=== PATIENT | female | born 1955 | race Caucasian/White ===

== ENCOUNTER → 2017-08-12 08:48 | Outpatient (CLI) | payer OTHER, SELFPAY ==
--- NOTE | 2017-08-12 14:30 | PFTCOMP ---
COMPLETE PULMONARY FUNCTION TEST INTERPRETATION Brief HPI: Patient is a 62 year old female, currently under the care of myself, who presents to [facility] for complete pulmonary function tests secondary to diagnosis of abnormal PFT. Respiratory therapist reports good effort and reproducible results. Interpretation: Forced expiration spirometry shows no large airways obstructive ventilatory defect with an FEV1 of 94 % predicted. There is no significant bronchodilator response by ATS criteria. Spirograms are of good quality and plateau normally. The respiratory flow volume loop shows a normal pattern. Lung volumes by body plethysmography show a normal total lung capacity at 4.45 L, 95% predicted. All other lung volumes are within normal limits. Diffusion capacity by carbon monoxide is decreased at 61 % predicted. The airway resistance is elevated. Compared to previous pulmonary function tests from 12/23/2016, there has been a significant change in all spirometric values and restriction. Impression: Delayed reduction diffusing capacity consistent with a pulmonary vascular disorder. Significant improvement overall compared to previous testing.
--- NOTE | 2017-08-12 14:33 | PFTCOMP_ITS ---
COMPLETE PULMONARY FUNCTION TEST INTERPRETATION Brief HPI: Patient is a 62 year old female, currently under the care of myself, who presents to [facility] for complete pulmonary function tests secondary to diagnosis of abnormal PFT. Respiratory therapist reports good effort and reproducible results. Interpretation: Forced expiration spirometry shows no large airways obstructive ventilatory defect with an FEV1 of 94 % predicted. There is no significant bronchodilator response by ATS criteria. Spirograms are of good quality and plateau normally. The respiratory flow volume loop shows a normal pattern. Lung volumes by body plethysmography show a normal total lung capacity at 4.45 L , 95% predicted. All other lung volumes are within normal limits. Diffusion capacity by carbon monoxide is decreased at 61 % predicted. The airway resistance is elevated. Compared to previous pulmonary function tests from 12/23/2016, there has been a significant change in all spirometric values and restriction. Impression: Delayed reduction diffusing capacity consistent with a pulmonary vascular disorder. Significant improvement overall compared to previous testing.
== END ==
PROVIDERS: Family Provider Family Medicine; PCP Family Medicine; Visit Provider Internal Medicine Critical Care Medicine
DX: R94.2 Abnormal results of pulmonary function studies (principal); R05 Cough
CPT/HCPCS: 94060; 94726; 94729

== ENCOUNTER → 2017-10-23 10:31 | Outpatient (CLI) | payer OTHER, SELFPAY ==
--- NOTE | 2017-10-23 16:14 | LEAS ---
Arterial Study - Arterial Study Arterial Study: Bilateral lower extremity noninvasive arterial exam at rest Right lower extremity The right PT and DP ankle-brachial index at rest of 1.11 and 1.01 respectively. Doppler waveforms are triphasic at the right posterior tibial and dorsalis pedis level. Left lower extremity The left PT and DP ankle-brachial index at rest 1.03 and 1.03 respectively. The left posterior tibial and dorsalis pedis Doppler waveforms are triphasic. Impression Normal bilateral lower extremity ankle-brachial indices and Doppler waveforms at rest. Rodney Cronin M.D., F.A.C.S.
== END ==
PROVIDERS: Family Provider Family Medicine; PCP Family Medicine; Visit Provider Nurse Practitioner Family
DX: I73.9 Peripheral vascular disease, unspecified (principal)
CPT/HCPCS: 93922

== ENCOUNTER → 2018-05-29 12:44 | Outpatient (CLI) | payer OTHER, SELFPAY ==
[2018-05-21 15:51] VITALS: BMI 33.8
--- NOTE | 2018-05-29 12:45 | ECHOD_ITS ---
Reason For Study: A. fib/flutter Procedure This was a 2D Doppler, Color Flow transthoracic echocardiogram. Exam performed in department. Left Ventricle Normal LV size. Left ventricular systolic function is normal. The estimated ejection fraction is 60 %. Stage 1 diastolic dysfunction. No regional wall motion abnormalities noted. Right Ventricle Normal RV size. Normal systolic function. Atria Normal left atrium. Normal right atrium. Mitral Valve Bileaflet diffuse mitral valve thickening. Mild (1+) eccentric mitral valve insufficiency. Tricuspid Valve Normal tricuspid valve. Mild tricuspid valve insufficiency. Pulmonary artery systolic pressure is 29 mmHg. Aortic Valve Normal aortic valve. Trisinus/trileaflet aortic valve. Pulmonic Valve Normal pulmonic valve. Great Vessels Normal aortic root. The pulmonary artery is normal size. Normal inferior vena cava. Pericardium/Pleural No pericardial effusion. MMode/2D Measurements & Calculations LVIDd: 4.6 cm IVSd: 0.97 cm Ao root diam: 2.9 cm LVIDs: 2.9 cm LVPWd: 0.92 cm RVDd: 3.2 cm FS: 36.3 % LAV(MOD-bp): 56.0 ml EDV(MOD-sp4): 70.8 ml EDV(MOD-sp2): 78.2 ml LAV(MOD-bp) Indexed: 29.6 ml/m2 ESV(MOD-sp4): 34.6 ml EF(MOD-sp2): 52.1 % LAV(MOD-sp2): 62.1 ml EF(MOD-sp4): 51.1 % LAV(MOD-sp4): 48.0 ml SV(MOD-sp4): 36.2 ml SV(MOD-sp2): 40.8 ml LA A4 area: 18.6 cm2 LA dimension(2D): 3.7 cm RA A4 area: 14.0 cm2 Doppler Measurements & Calculations MV E max kolby: 80.1 cm/sec Lat Peak E' Kolby: 9.4 cm/sec Med Peak E' Kobly: 6.4 cm/sec MV A max kolby: 85.0 cm/sec E/E' lat: 8.5 E/E' med: 12.5 MV E/A: 0.94 Ao V2 max: 185.2 cm/sec LV V1 max: 106.4 cm/sec PA V2 max: 69.3 cm/sec Ao max P.7 mmHg LV V1 max P.5 mmHg TR max kolby: 256.5 cm/sec TR max P.3 mmHg Interpretation Summary Normal LV size. Left ventricular systolic function is normal. The estimated ejection fraction is 60 %. Stage 1 diastolic dysfunction. Pulmonary artery systolic pressure is 29 mmHg. The global longitudinal strain is normal. The global longitudinal strain = -17.7 % (normal). Ordering Physician: Anish Contreras Referring Physician: Unruly Orozco MD Performed By: Neela Aguilar RDCS
--- NOTE | 2018-05-29 12:45 | CDU_ITS ---
Reason For Study: Vertigo Rt. Velocities/BP Lt. Velocities/BP Prox CCA 71.5/21.7 cm/sec. Prox CCA 72.1/25.2 cm/sec. Mid CCA 63.3/18.2 cm/sec. Mid CCA 71.5/21.7 cm/sec. Dist CCA 51.0/17.0 cm/sec. Dist CCA 56.3/22.3 cm/sec. Prox ICA 71.4/24.1 cm/sec. Prox ICA 68.6/24.0 cm/sec. Mid ICA 69.2/24.6 cm/sec. Mid ICA 76.8/24.0 cm/sec. Dist ICA 61.6/17.6 cm/sec. Dist ICA 68.6/25.8 cm/sec. Rt. ICA/CCA = 1.1. Lt. ICA/CCA = 1.1. Prox ECA 78.0/14.7 cm/sec. Prox ECA 77.4/18.8 cm/sec. Rt. Vert. 55.1/14.7 cm/sec. Lt. Vert. 47.5/16.4 cm/sec. Right Extracranial There is intimal thickening but no significant atherosclerotic plaque noted in the right common carotid artery. There is heterogeneous, irregular atherosclerotic plaque noted in the right internal carotid artery. There is no significant atherosclerotic plaque noted in the right external carotid artery. Antegrade flow is noted in the right vertebral artery. Left Extracranial There is intimal thickening but no significant atherosclerotic plaque noted in the left common carotid artery. There is heterogeneous, irregular atherosclerotic plaque noted in the left internal carotid artery. There is no significant atherosclerotic plaque noted in the left external carotid artery. Antegrade flow is noted in the left vertebral artery. Procedure Carotid Duplex [id number]. Exam performed in department. Interpretation Summary Irregular calcific plague at the proximal right internal carotid with <50% stenosis. Irregular calcific plague with shadowing at the proximal left internal carotid with <50% stenosis. Normal flow bilateral external carotids. Patent and antegrade vertebrals bilaterally Velocity criteria have not changed from her previous examination of 03/12/2010. Ordering Physician: Anish Contreras Referring Physician: Unruly Orozco MD Performed By: Tory Arteaga RVT
--- OUTSIDE RECORDS SUMMARY | 2018-08-03 02:36 | XMS RPT_ITS ---
:1955 Author Organization [facility] Support Name Relationship Address Phone LAUREN ANDERSON Unavailable [address] + [place] [address] ROBIND Unavailable [address] [place] [address] MONICA, LAUREN Unavailable [address] + [place] [address] ROBIND Unavailable [address] [place] [address] MONICA, LAUREN Unavailable [address] + [place] [address] ROBIND Unavailable [address] [place] [address] MONICA, LAUREN Unavailable [address] + [place] [address] ROBIND Unavailable [address] [place] [address] MONICA LAUREN Unavailable Unavailable + NOT GIVEN Unavailable Unavailable Unavailable MONICA LAUREN Unavailable [address] + [place] [address] ROBIND Unavailable [address] [place] [address] MONICA, LAUREN Unavailable [address] + [place] [address] ROBIND Unavailable [address] [place] [address] MONICA, LAUREN Unavailable [address] + [place] [address] ROBIND Unavailable [address] [place] [address] MONICA, LAUREN Unavailable [address] + [place] [address] ROBIND Unavailable [address] [place] [address] MONICA, LAUREN Unavailable Unavailable + NOT GIVEN Unavailable Unavailable Unavailable MONICA, LAUREN Unavailable [address] + [place] [address] ROBIND Unavailable [address] [place] [address] MONICA, LAUREN Unavailable [address] + [place] [address] ROBIND Unavailable [address] [place] [address] MONICA, LAUREN Unavailable [address] + [place] [address] ROBIND Unavailable [address] [place] [address] Care Team Providers Name Role Phone MARY SWEENEY (TAIL SAWYER) Referring Unavailable MARY SWEENEY (TAIL SAWYER) Attending Unavailable UNRULY OROZCO Admitting Unavailable UNRULY OROZCO Attending Unavailable UNRULY OROZCO Primary Care Unavailable UNRULY OROZCO Consulting Unavailable PROVIDER, UNKNOWN Consulting Unavailable PROVIDER, UNKNOWN Consulting Unavailable PROVIDER, UNKNOWN Consulting Unavailable UNRULY OROZCO Admitting Unavailable UNRULY OROZCO Attending Unavailable UNRULY OROZCO Primary Care Unavailable UNRULY OROZCO Consulting Unavailable PROVIDER, UNKNOWN Consulting Unavailable PROVIDER, UNKNOWN Consulting Unavailable PROVIDER, UNKNOWN Consulting Unavailable Ben, Kirvin Attending Unavailable Ben, Anish Referring Unavailable Unruly Orozco Primary Care Unavailable Ben, Kirvin Attending Unavailable Ben, Kirvin Referring Unavailable Unruly Orozco Primary Care Unavailable Ben, Anish Consulting Unavailable Rodney Cronin Attending Unavailable Ben, Anish Referring Unavailable Unruly Orozco Primary Care Unavailable Ben, Kirvin Consulting Unavailable Evita Solorzano Attending Unavailable Jones Sidhu Attending Unavailable Unruly Orozco Referring Unavailable Unruly Orozco Primary Care Unavailable Jones Sidhu Attending Unavailable Jones Sidhu Referring Unavailable Unruly Orozco Primary Care Unavailable Ben, Kirvin Attending Unavailable Unruly Orozco Referring Unavailable Rodney Cronin Attending Unavailable Ever, Alberto Attending Unavailable Unruly Orozco Referring Unavailable Ever, Alberto Attending Unavailable Ever, Alberto Referring Unavailable Ever, Alberto Attending Unavailable Ever, Alberto Referring Unavailable Unruly Orozco Primary Care Unavailable PROBLEMS PROBLEMS DATE TYPE CONDITION / CODE ATTENDING STATUS SOURCE 05/30/2018 Unknown I34.0 - Rodney Cronin Active [facility] Nonrheumatic mitral Community (valve) Hospital insufficiency / Repository I34.0(ICD-10) 05/30/2018 Unknown R09.89 - Other Rodney Cronin Active [facility] specified symptoms Community and signs involving Hospital the circulatory and Repository respiratory systems / R09.89(ICD-10) 05/21/2018 Unknown I48.0 - Paroxysmal Ben, Kirvin Active [facility] atrial fibrillation Community / I48.0(ICD-10) Hospital Repository 05/21/2018 Unknown I10 - Essential Ben, Anish Active [facility] (primary) Community hypertension / Hospital I10(ICD-10) Repository 01/14/2018 Principle Hypothyroidism, UNRULY OROZCO Active [facility] Diagnosis unspecified / [facility] E039(ICD-10) Hospital Repository 01/14/2018 Secondary Essential (primary) UNRULY OROZCO Active [facility] Diagnosis hypertension / [facility] I10(ICD-10) Hospital Repository 12/02/2017 Unknown I73.9 - Peripheral Rodney Cronin Active [facility] vascular disease, Community unspecified / Hospital I73.9(ICD-10) Repository 11/17/2017 Unknown R06.09 - Other Jones Sidhu Active [facility] forms of dyspnea / Community R06.09(ICD-10) Hospital Repository 09/04/2017 Unknown R94.2 - Abnormal Alberto Curtis Active [facility] results of [facility] pulmonary function Hospital studies / Repository R94.2(ICD-10) 06/25/2017 Active Unknown / MARY SWEENEY Active [facility] UNK(Unknown) (TAIL SAWYER) Clinic Main [place] Repository 06/25/2017 Active Encounter for Active [facility] screening mammogram Clinic Main for malignant [place] neoplasm of breast Repository / Z12.31(ICD-10) PROCEDURES PROCEDURES No Procedure Records FoundRESULTS RESULTS CAROTID DUPLEX Observed: 05/30/2018 Status: F Source: [facility] ULTRASOUND 8:50 AM [facility] REPOSITORY [facility] Cardiovascular Services [address] [place] [address] Carotid Duplex Ultrasound 05/29/18 1250 MR#: [id number] Acct: [id number] Name: MADHAVI ANDERSON Rep #: [id number] : 1955 62 From: Rodney Cronin MD Attending Dr: Anish Contreras MD Status: REG CLI Ordering Dr: Anish Contreras MD Date: 05/29/18 Location: [facility] Sex: F C Admitted: Reason For Study: Vertigo Rt. Velocities/BP Lt. Velocities/BP Prox CCA 71.5/21.7 cm/sec. Prox CCA 72.1/25.2 cm/sec. Mid CCA 63.3/18.2 cm/sec. Mid CCA 71.5/21.7 cm/sec. Dist CCA 51.0/17.0 cm/sec. Dist CCA 56.3/22.3 cm/sec. Prox ICA 71.4/24.1 cm/sec. Prox ICA 68.6/24.0 cm/sec. Mid ICA 69.2/24.6 cm/sec. Mid ICA 76.8/24.0 cm/sec. Dist ICA 61.6/17.6 cm/sec. Dist ICA 68.6/25.8 cm/sec. Rt. ICA/CCA = 1.1. Lt. ICA/CCA = 1.1. Prox ECA 78.0/14.7 cm/sec. Prox ECA 77.4/18.8 cm/sec. Rt. Vert. 55.1/14.7 cm/sec. Lt. Vert. 47.5/16.4 cm/sec. Right Extracranial There is intimal thickening but no significant atherosclerotic plaque noted in the right common carotid artery. There is heterogeneous, irregular atherosclerotic plaque noted in the right internal carotid artery. There is no significant atherosclerotic plaque noted in the right external carotid artery. Antegrade flow is noted in the right vertebral artery. Left Extracranial There is intimal thickening but no significant atherosclerotic plaque noted in the left common carotid artery. There is heterogeneous, irregular atherosclerotic plaque noted in the left internal carotid artery. There is no significant atherosclerotic plaque noted in the left external carotid artery. Antegrade flow is noted in the left vertebral artery. Procedure Carotid Duplex [id number]. Exam performed in department. Interpretation Summary Irregular calcific plague at the proximal right internal carotid with <50% stenosis. Irregular calcific plague with shadowing at the proximal left internal carotid with <50% stenosis. Normal flow bilateral external carotids. Patent and antegrade vertebrals bilaterally Velocity criteria have not changed from her previous examination of 03/12/2010. Ordering Physician: Anish Contreras Referring Physician: Unruly Orozco MD Performed By: Tory Arteaga RVT 05/30/18 0849 Date Rodney Cronin MD CC: Anish Contreras MD; Unruly Orozco MD Date Dictated: 05/29/18 1250 Date Transcribed: 05/30/18 0849 Health Professional: Signed ECHOCARDIOGRAM COMPLETE Observed: 05/29/2018 Status: F Source: [facility] 3:01 PM [facility] REPOSIT[facility] Cardiovascular Services [address] [place] [address] Echo Complete 05/29/18 1308 MR#: [id number] Acct: [id number] Name: MADHAVI ANDERSON Rep #: [id number] : 1955 62 From: Anish Contreras MD Attending Dr: Anish Contreras MD Status: REG CLI Ordering Dr: Anish Contreras MD Date: 05/29/18 Location: [facility] Sex: F C Admitted: Reason For Study: A. fib/flutter Procedure This was a 2D Doppler, Color Flow transthoracic echocardiogram. Exam performed in department. Left Ventricle Normal LV size. Left ventricular systolic function is normal. The estimated ejection fraction is 60 %. Stage 1 diastolic dysfunction. No regional wall motion abnormalities noted. Right Ventricle Normal RV size. Normal systolic function. Atria Normal left atrium. Normal right atrium. Mitral Valve Bileaflet diffuse mitral valve thickening. Mild (1+) eccentric mitral valve insufficiency. Tricuspid Valve Normal tricuspid valve. Mild tricuspid valve insufficiency. Pulmonary artery systolic pressure is 29 mmHg. Aortic Valve Normal aortic valve. Trisinus/trileaflet aortic valve. Pulmonic Valve Normal pulmonic valve. Great Vessels Normal aortic root. The pulmonary artery is normal size. Normal inferior vena cava. Pericardium/Pleural No pericardial effusion. MMode/2D Measurements AND Calculations LVIDd: 4.6 cm IVSd: 0.97 cm Ao root diam: 2.9 cm LVIDs: 2.9 cm LVPWd: 0.92 cm RVDd: 3.2 cm FS: 36.3 % LAV(MOD-bp): 56.0 ml EDV(MOD-sp4): 70.8 ml EDV(MOD-sp2): 78.2 ml LAV(MOD-bp) Indexed: 29.6 ml/m2 ESV(MOD-sp4): 34.6 ml EF(MOD-sp2): 52.1 % LAV(MOD-sp2): 62.1 ml EF(MOD-sp4): 51.1 % LAV(MOD-sp4): 48.0 ml SV(MOD-sp4): 36.2 ml SV(MOD-sp2): 40.8 ml LA A4 area: 18.6 cm2 LA dimension(2D): 3.7 cm RA A4 area: 14.0 cm2 Doppler Measurements AND Calculations MV E max kolby: 80.1 cm/sec Lat Peak E' Kolby: 9.4 cm/sec Med Peak E' Kolby: 6.4 cm/sec MV A max kolby: 85.0 cm/sec E/E' lat: 8.5 E/E' med: 12.5 MV E/A: 0.94 Ao V2 max: 185.2 cm/sec LV V1 max: 106.4 cm/sec PA V2 max: 69.3 cm/sec Ao max P.7 mmHg LV V1 max P.5 mmHg TR max kolby: 256.5 cm/sec TR max P.3 mmHg Interpretation Summary Normal LV size. Left ventricular systolic function is normal. The estimated ejection fraction is 60 %. Stage 1 diastolic dysfunction. Pulmonary artery systolic pressure is 29 mmHg. The global longitudinal strain is normal. The global longitudinal strain = -17.7 % (normal). Ordering Physician: Anish Contreras Referring Physician: Unruly Orozco MD Performed By: Neela Aguilar, FIONA 05/29/18 1501 Date Anish Contreras MD CC: Anish Contreras MD; Unruly Orozco MD Date Dictated: 05/29/18 1308 Date Transcribed: 05/29/18 1501 Health Professional: Signed CARDIOLOGY VISIT Observed: 05/21/2018 Status: F Source: [facility] REPORT 4:15 PM [facility] REPOSITORY [facility] [address] [place] [address]. [address] [place] [address] OFFICE VISIT Date of Service: 05/21/18 MR#: [id number] Acct: [id number] Name: MADHAVI ANDERSON Rep #: [id number] : 1955 Provider: Anish Contreras MD Age/Sex: 62/F [place] [facility] [place]: Signed HPI HPI Chief Complaint: Follow-up visit Details: MADHAVI ANDERSON, is a 62 F who presents to the office today for a follow-up visit. She is a lady with a history of hypertension, paroxysmal atrial fibrillation, mitral valve regurgitation. She returns for routine follow-up visit she denies any chest pain shortness of breath or paroxysmal nocturnal dyspnea pedal edema she has not had any orthopnea no cough dizziness or diaphoresis. She is been compliant with all her medications her blood pressure appears to be under much better control at this particular time. Her physical exam today demonstrates clear lung cheatham regular rate and rhythm a 2/6 systolic murmur noted left sternal border radiating to the axilla. No pedal edema is noted. Intake Vital Signs05/21/18 Height 5 ft 3 in 05/21/18 Weight: 191 lb 05/21/18 Body Mass Index (BMI) 33.8 05/21/18 Blood Pressure 132/78 H 05/21/18 Blood Pressure Location Lt brachial Intake Visit Reasons: 7 M Cloth Dyeing Range Tender Required: No Accompanied by: none Is patient in pain?: No Allergies lisinopril Allergy (Verified 05/21/18 15:52) Unknown Medications Aspirin [Adult Low Dose Aspirin EC] 81 mg PO DAILY 04/19/16 [History Confirmed 05/21/18] Levothyroxine Sodium [Levoxyl] 88 mcg PO DAILY 04/19/16 [History Confirmed 05/21/18] Losartan Potassium [Cozaar] 50 mg PO DAILY 04/19/16 [History Confirmed 05/21/18] Multivitamins,Therapeutic [Multivitamin] 1 tab PO DAILY 04/19/16 [History Confirmed 05/21/18] albuterol sulfate HFA 90 mcg/actuation aerosol inhaler 2 puff INHALATION Q4H g 08/28/17 [History Confirmed 05/21/18] PFSH Medical History Acute bronchitis (Resolved) Upper respiratory infection (Resolved) Acute sinusitis (Acute) GERD (gastroesophageal reflux disease) (Chronic) Restrictive lung disease (Chronic) Obesity (Chronic) Hypertension (Chronic) Nonrheumatic mitral (valve) insufficiency (Chronic) Paroxysmal atrial fibrillation (Chronic) Carotid bruit (Chronic) Chest discomfort (Chronic) CAD (coronary artery disease) (Chronic) Dizziness and giddiness (Chronic) MALIK (dyspnea on exertion) (Chronic) Abnormal PFTs (pulmonary function tests) (Chronic) Acute costochondritis (Acute) Chronic cough (Chronic) Chest pain (Acute) dyspena on exertion (Acute) Surgical History History of cholecystectomy (Resolved) Family History Father Cancer Diabetes Hypertension Mother Heart disease Social History Smoking Status: Never smoker second hand exposure: No alcohol intake: never substance use type: does not use caffeine: Yes what type of physical activity do you participate in: walking frequency: 1-2 times per week ROS Const Const: Negative for fatigue, weakness, night sweats, excessive sweating, frequent falls, headache(s) or daytime sleepiness Eyes Eyes: Negative for loss of peripheral vision, transient loss of vision, blind spots, double vision or blurry vision ENT ENT: Negative for headache(s), dizziness, balance problems, Nosebleed/epistaxis, tongue swelling or lip swelling Cardio Chest Pain: No Palpitations: No Edema: None Muscle aches with walking: None Resp Respiratory: Negative for SOB at rest, SOB orthopnea\SOB lying down, Cough, paroxysmal nocturnal dyspnea or SOB with activity GI GI: Negative nausea, vomiting, heartburn, black,tarry stools or bright, red blood in stools : Negative for hematuria Musc Musc: Negative for balance problems, muscle aches/ myalgia, muscle weakness or joint pain Skin Skin: Negative non-healing lesions, unusual bruising or rash Neuro Neuro: Negative for weakness, frequent falls, headache(s), double vision, dizziness, lightheadedness, orthostatic symptoms, blurry vision or lack of coordination [place] Hematologic/Lymphatic: Negative for easy bruising or easy bleeding Endo Endo: Negative for fatigue, excessive sweating, cold intolerance, heat intolerance, increased thirst/drinking or hair loss Psych Psych: Negative for anxiety or depression Allergy Allergy/Immunology: Negative for throat swelling, Negative for tongue swelling, Negative for hives, Negative for rash, Negative for lip swelling Cardiology Exam Const Appearance: cooperative, healthy appearing, well developed, well groomed and no acute distress Nutritional Appearance: well nourished and average body habitus Orientation: alert, awake and oriented x3 Head Head: normal to inspection, normocephalic and atraumatic Ears: hearing grossly normal bilaterally and external ears normal Nose: external nose normal, nasal mucous membranes and turbinates normal, nares normal, septum normal, no nasal discharge Face and Sinus: face symmetric Mouth: oral mucosae normal, tongue normal, oropharynx normal and moist mucous membranes Teeth and gingiva: dentition normal Throat: posterior oropharynx normal, tonsils normal and uvula midline Eyes General: appearance normal, both eyes and all related structures Eyelids: eyelids normal Conjunctivae: conjunctivae normal Pupils: PERRL, normal by confrontation and accommodation normal EOM: EOM intact bilaterally Neck Neck: normal visual inspection, trachea midline and no JVD JVD: +5 Carotids: normal carotid upstroke and bounding pulses Chest Chest inspection: normal inspection of the chest, symmetric chest movement and normal respiratory effort Auscultation: Bilateral: Clear to Auscultation Cardio Palpation: normal PMI Rate: regular rate Rhythm: regular rhythm Heart sounds: S1 normal and S2 normal Murmur: Grade 2/6, holosystolic and apex GI GI: normal to inspection, soft, no hepatosplenomegaly and bowel sounds present Neuro General: alert, awake, oriented x3, no focal sensory deficit, gait normal and moves all extremities Skin Skin: no rashes or lesions noted Extremities Pulses: Normal: Right Femoral Pulse, Left Femoral Pulse, Right Dorsalis Pedis Pulse, Left Dorsalis Pedis Pulse, Right Posterior Tibial Pulse, Left Posterior Tibial Pulse, Right Radial Pulse, Left Radial Pulse Lower Extremity Edema: None: Bilateral Musculoskel Musculoskeletal: No joint tenderness Psych Psychological: normal affect Assessment AND Plan 1. Nonrheumatic mitral (valve) insufficiency I34.0 Plan She does have a history of mitral regurgitation. Her last echocardiogram demonstrated mild mitral insufficiency. My recommendation will be for us to repeat the echocardiogram to make sure that there is no worsening of the above. Orders Orders: 2. Essential hypertension I10 Plan She does have a history of hypertension which is well controlled on the current medical therapy she will remain on the losartan at the same dose. I do not think there is a reason to make any changes. 3. Paroxysmal atrial fibrillation I48.0 Plan She did have a previous history of paroxysmal atrial fibrillation she appears to be maintaining sinus rhythm at this particular time I do not think there is a reason for anticoagulation presently. Thank you for allowing me to participate in the care of your patient. Please don't hesitate to call if any issues arise Plan Detail Other Orders Orders: Follow Up 1 Year (iv therapy nurse) Coding Level of Care Code Off vis,est,level 3 Diagnoses Nonrheumatic mitral (valve) insufficiency I34.0 Essential hypertension I10 Hypertension type: essential hypertension Paroxysmal atrial fibrillation I48.0 Coding Level of Care Code Off vis,est,level 3 Diagnoses Nonrheumatic mitral (valve) insufficiency I34.0 Essential hypertension I10 Hypertension type: essential hypertension Paroxysmal atrial fibrillation I48.0 Supplemental Info Supplemental Information Diagnostics Cardiac Catheterization 04/22/16 Pulmonary Pulmonary Function Test 08/12/17 Pulmonary Exercise Test 12/25/16 05/21/18 8999 <Electronically signed by Anish Contreras MD> Date Anish Dougherty Signature: Date (if applicable) CC: Unruly Orozco MD TSH Collected: 01/14/2018 Status: F Source: [facility] 10:00 [facility] REPOSITORY TYPE CODE TESTS RESULT OUT OF RANGE REFERENCE UNITS LAB TSH(INC) 0.34 - 5.60 uIU/ml TSH 2.22 Performed By: #### [id number] #### [facility],[address] [place] [address] BMP WITH EGFR Collected: 01/14/2018 Status: F Source: [facility] 10:00 [facility] REPOSITORY TYPE CODE TESTS RESULT OUT OF RANGE REFERENCE UNITS LAB BMP with eGFR(LOINC) BMP with eGFR Result Comment: BASIC METABOLIC PANEL LAB SODIUM(LOINC) 136 - 145 mmol/l SODIUM 138 LAB POTASSIUM(LOINC) 3.5 - 5.1 mmol/L Low POTASSIUM 3.4 LAB CHLORIDE(LOINC) 98 - 107 mmol/L CHLORIDE 98 LAB CO2(LOINC) 21.0 - mmol/L 31.0 CO2 29.1 LAB GLUCOSE(LOINC) 74 - 106 mg/dl GLUCOSE High 236 LAB BUN(LOINC) 6 - 20 mg/dl BUN 15 LAB CREATININE(LOINC) 0.6 - 1.2 mg/dl CREATININE 0.9 LAB CALCIUM(LOINC) 8.6 - mg/dl 10.2 CALCIUM 9.2 LAB ANION GAP(LOINC) 10 - 20 mmol/L ANION GAP 14 LAB AGE(LOINC) years AGE 62 LAB eGFR(LOINC) 60 - 999 ML/MINUTE eGFR >60 LAB eGFR(AA)(LOINC) 60 - 999 ML/MINUTE eGFR(AA) >60 Result Comment: ACCORDING TO THE NATIONAL KIDNEY DISEASE EDUCATION PROGRAM(NKDE), A NORMAL eGFR IS A VALUE GREATER THAN OR EQUAL TO 60 ML/MIN/1.73 SQ METERS. CHRONIC KIDNEY DISEASE: <60mL/MIN/1.73 SQ METERS KIDNEY FAILURE: <15mL/MIN/1.73 SQ METERS THIS TEST SHOULD ONLY BE USED FOR PATIENTS 18 YEARS OF AGE AND OLDER. Performed By: #### [id number] #### [facility],[address] [place] [address] LOWER EXT ARTERIAL Observed: 10/23/2017 Status: F Source: [facility] 4:16 PM [facility] REPOSIT[facility] Cardiovascular Services [address] [place] [id number] 10/23/171613 MR#: [id number] Acct: [id number] Name: MADHAVI ANDERSON Rep #: [id number] : 1955 62 From: Rodney Cronin MD Attending Dr: Jones Sidhu NP Status: REG CLI Ordering Dr: Date: 10/23/17 Location: [facility] Sex: F C Admitted: Arterial Study - Arterial Study Arterial Study: Bilateral lower extremity noninvasive arterial exam at rest Right lower extremity The right PT and DP ankle-brachial index at rest of 1.11 and 1.01 respectively. Doppler waveforms are triphasic at the right posterior tibial and dorsalis pedis level. Left lower extremity The left PT and DP ankle-brachial index at rest 1.03 and 1.03 respectively. The left posterior tibial and dorsalis pedis Doppler waveforms are triphasic. Impression Normal bilateral lower extremity ankle-brachial indices and Doppler waveforms at rest. Rodney Cronin M.D., F.A.C.S. 10/23/171615 <Electronically signed by Rodney Cronin MD> Date Rodney Cronin MD CC: MARKETING DATABASE ANALYST Jones Orozco Date Dictated: 10/23/171613 Date Transcribed: 10/23/171613 Health Professional: ALBA Signed CARDIOLOGY VISIT Observed: 10/22/2017 Status: F Source: [facility] RE[facility] 8:22 AM [facility] REPOSITORY [facility] [address] [facility] [place] [address] OFFICE VISIT Date of Service: 10/10/17 MR#: [id number] Acct: [id number] Name: MADHAVI ANDERSON Rep #: [id number] : 1955 Provider: SANTIAGO Sidhu Age/Sex: 62/F Location[place] [facility] [place] Status: Signed HPI HPI Details: MADHAVI ANDERSON, is a 62 F who presents to the office today for a cardiovascular outpatient follow-up. She has a history of mild mitral valve regurgitation, hypertension, and paroxysmal atrial fibrillation. Pt. denies chest, arm, jaw, or neck discomfort. Her exercise tolerance is stable via walking 3 days a week. Pt. denies symptoms of palpitations, lightheadedness, near syncope, or syncopal episodes. Pt. denies edema. Pt. denies orthopnea, PND, fever, chills, blood in urine, blood in stool, myalgia, or unexplainable fatigue. She states feeling dizzy when going from a sitting to standing position quickly that lasts for a few minutes. She since starting HCTZ her blood pressure is lower but she remains SOB with incline, even minimal. She states while walking she develops bilateral hip pain the radiates to her lower legs. Intake Vital Signs10/10/17 Height 5 ft 3 in 10/10/17 Weight: 198 lb 10/10/17 Body Mass Index (BMI) 35.0 10/10/17 Blood Pressure 122/70 Intake Visit Reasons: 6 M FU Cloth Dyeing Range Tender Required: No Accompanied by: none Is patient in pain?: No Allergies lisinopril Allergy (Verified 10/10/17 14:37) Unknown Medications Aspirin [Adult Low Dose Aspirin EC] 81 mg PO DAILY 04/19/16 [History Confirmed 10/10/17] Levothyroxine Sodium [Levoxyl] 88 mcg PO DAILY 04/19/16 [History Confirmed 10/10/17] Losartan Potassium [Cozaar] 50 mg PO DAILY 04/19/16 [History Confirmed 10/10/17] Multivitamins,Therapeutic [Multivitamin] 1 tab PO DAILY 04/19/16 [History Confirmed 10/10/17] albuterol sulfate HFA 90 mcg/actuation aerosol inhaler 2 puff INHALATION Q4H g 08/28/17 [History Confirmed 10/10/17] hydrochlorothiazide 25 mg tablet 25 mg PO QDAY 10/07/17 [History Confirmed 10/10/17] omeprazole 20 mg capsule,delayed release 20 mg PO QDAY 10/10/17 [History Confirmed 10/10/17] Ejection fraction %: 55 to 59 PFSH Medical History Acute bronchitis (Resolved) Upper respiratory infection (Resolved) Acute sinusitis (Acute) GERD (gastroesophageal reflux disease) (Chronic) Restrictive lung disease (Chronic) Obesity (Chronic) Hypertension (Chronic) Nonrheumatic mitral (valve) insufficiency (Chronic) Paroxysmal atrial fibrillation (Chronic) Carotid bruit (Chronic) Chest discomfort (Chronic) CAD (coronary artery disease) (Chronic) Dizziness and giddiness (Chronic) MALIK (dyspnea on exertion) (Chronic) Abnormal PFTs (pulmonary function tests) (Chronic) Acute costochondritis (Acute) Chronic cough (Chronic) Chest pain (Acute) dyspena on exertion (Acute) Surgical History History of cholecystectomy (Resolved) Family History Father Cancer Diabetes Hypertension Mother Heart disease Social History Smoking Status: Never smoker second hand exposure: No alcohol intake: never substance use type: does not use caffeine: Yes what type of physical activity do you participate in: walking frequency: 1-2 times per week ROS Const Const: Negative for fatigue, weakness, body ache, fever(s) or chills ENT ENT: Positive for dizziness Cardio Chest Pain: No Palpitations: No Edema: None Muscle aches with walking: Bilateral Resp Respiratory: Positive for SOB with activity; negative for SOB at rest, SOB orthopnea\SOB lying down or paroxysmal nocturnal dyspnea GI GI: Negative nausea, black,tarry stools, bright, red blood in stools or vomiting blood/hematemesis : Negative for hematuria or frequent nighttime urination/ nocturia Musc Musc: Negative for muscle aches/ myalgia Skin Skin: Negative non-healing lesions or rash Neuro Neuro: Positive for dizziness; negative for weakness, lightheadedness, near syncope, syncope or orthostatic symptoms Endo Endo: Negative for fatigue Allergy Allergy/Immunology: Negative for rash Supplemental Info Heart catheterization from April 2016 showed preserved left ventricular size and function, hypertension, LAD with 20-30% stenosis, LCx which is dominant with no high-grade stenosis, RCA which is nondominant with no high-grade stenosis, and preserved ejection fraction. Stress test from March 2016 showed peak EKG with upsloping ST changes, which do not meet criteria for ischemia and changes suggesting ischemia but functional aerobic impairment noted. Echocardiogram from April 2014 showed an estimated ejection fraction 55% and mild mitral valve insufficiency. Carotid duplex ultrasound from March 2010 showed bilateral internal carotid artery stenosis less than 50%, which is not hemodynamically significant. Assessment AND Plan 1. Claudication I73.9 Plan - SARAH Woodawrd Patient does exhibit some symptoms of claudication while walking. It does not appear to be typical peripheral arterial disease, but an KIMBERLEE testing will be done to further evaluate. Based on results further recommendation will be made. Orders Orders: 2. Dyspnea on exertion R06.09 Plan - SARAH Woodward denies any drastic changes/improvement on dyspnea since initiating hydrochlorothiazide. She was asked to continue to improve her overall activity and hopefully with increased functional capacity her shortness of breath improves. She notices the dyspnea mainly with incline. 3. Paroxysmal atrial fibrillation I48.0 Plan - SARAH Woodward Patient appears to be maintaining regular rhythm. She will continue current medications. We will continue to monitor this. 4. Essential hypertension I10 Plan - SARAH Woodward Patient's blood pressure is well-controlled today in the office. We will continue to monitor this. We will not make any medication regimen changes. Plan Detail Additional Comments - SARAH Woodward Thank you for allowing us to participate in the patients plan of care, if you have any questions please do not hesitate to call. This note was generated using a voice recognition system and there may be incorrect words, spelling or punctuation that were not noted when reviewing the office note prior to saving. 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) Coding Level of Care Code Off vis,est,level 3 Diagnoses Claudication I73.9 Dyspnea on exertion R06.09 Paroxysmal atrial fibrillation I48.0 Essential hypertension I10 Hypertension type: essential hypertension Coding Level of Care Code Off vis,est,level 3 Diagnoses Claudication I73.9 Dyspnea on exertion R06.09 Paroxysmal atrial fibrillation I48.0 Essential hypertension I10 Hypertension type: essential hypertension 10/10/17 1510 <Electronically signed by Jones SMITH> Date Jones SMITH 10/22/17 0822<Electronically signed by Anish Contreras MD> Cosigner Signature: Date (if applicable) Anish Contreras MD CC: Unruly Orozco TSH Collected: 09/16/2017 Status: F Source: [facility] 7:41 [facility] REPOSITORY TYPE CODE TESTS RESULT OUT OF RANGE REFERENCE UNITS LAB TSH(INC) 0.34 - 5.60 uIU/ml TSH 3.39 Performed By: #### [id number] #### [facility],[address] [place] [address] CMP WITH EGFR Collected: 09/16/2017 Status: F Source: [facility] 7:41 [facility] REPOSITORY TYPE CODE TESTS RESULT OUT OF RANGE REFERENCE UNITS LAB CMP with eGFR(LOINC) CMP with eGFR Result Comment: COMPREHENSIVE METABOLIC PANEL LAB SODIUM(LOINC) 136 - 145 mmol/l SODIUM 140 LAB POTASSIUM(LOINC) 3.5 - 5.1 mmol/L Low POTASSIUM 3.1 LAB CHLORIDE(LOINC) 98 - 107 mmol/L CHLORIDE 100 LAB CO2(LOINC) 21.0 - mmol/L 31.0 CO2 30.9 LAB GLUCOSE(LOINC) 74 - 106 mg/dl GLUCOSE High 208 LAB BUN(LOINC) 6 - 20 mg/dl BUN 16 LAB CREATININE(LOINC) 0.6 - 1.2 mg/dl CREATININE 0.9 LAB AST/SGOT(LOINC) 13 - 39 U/L AST/SGOT 25 LAB ALK PHOS(LOINC) 38 - 126 U/L ALK PHOS 77 LAB CALCIUM(LOINC) 8.6 - mg/dl 10.2 CALCIUM 9.4 LAB TOTAL 6.4 - 8.3 g/dl PROTEIN(LOINC) TOTAL PROTEIN 6.4 LAB ALBUMIN(LOINC) 3.4 - 4.8 g/dL ALBUMIN 4.0 LAB GLOBULIN(LOINC) 1.5 - 3.8 G/DL GLOBULIN 2.4 LAB A/G RATIO(LOINC) 0.9 - 1.6 A/G High RATIO 1.7 LAB TOTAL BILI(LOINC) 0.0 - 1.5 mg/dl TOTAL BILI 0.7 LAB B/C RATIO(LOINC) 0 - 30 ratio B/C RATIO 18 LAB ALT/SGPT(LOINC) 8 - 35 U/L ALT/SGPT 32 LAB ANION GAP(LOINC) 10 - 20 mmol/L ANION GAP 12 LAB AGE(LOINC) years AGE 62 LAB eGFR(LOINC) 60 - 999 ML/MINUTE eGFR >60 LAB eGFR(AA)(LOINC) 60 - 999 ML/MINUTE eGFR(AA) >60 Result Comment: ACCORDING TO THE NATIONAL KIDNEY DISEASE EDUCATION PROGRAM(NKDE), A NORMAL eGFR IS A VALUE GREATER THAN OR EQUAL TO 60 ML/MIN/1.73 SQ METERS. CHRONIC KIDNEY DISEASE: <60mL/MIN/1.73 SQ METERS KIDNEY FAILURE: <15mL/MIN/1.73 SQ METERS THIS TEST SHOULD ONLY BE USED FOR PATIENTS 18 YEARS OF AGE AND OLDER. Performed By: #### [id number] #### [place] [id number] LIPID PROFILE Collected: 09/16/2017 Status: F Source: [facility] 7:41 AM [facility] REPOSITORY TYPE CODE TESTS RESULT OUT OF REFERENCE UNITS RANGE LAB LIPID PROFILE(LOIN C) LIPID PROFILE Result Comment: LIPID PROFILE LAB TRIGLYCERIDE(LOINC) 0 - 150 mg/dl TRIGLYCERIDE 126 LAB CHOLESTEROL(LOINC) 0 - 200 mg/dl CHOLESTEROL 198 LAB HDL(LOINC) 40 - 60 mg/dl HDL 44 LAB CHOL/HDL(LOINC) 0.0 - 5.0 CHOL/HDL 4.5 LAB LDL(LOINC) 0 - 129 mg/dl LDL 129 Performed By: #### [id number] #### [place] [id number] PULMONARY VISIT REPORT Observed: 09/04/2017 Status: F Source: [facility] 12:54 PM [facility] REPOSITORY Pulmonary Medicine [address] [place] [address] OFFICE VISIT Date of Service: 09/04/17 MR#: [id number] Acct: [id number] Name: MONICAMADHAVI ELENA Haydee Rep #: [id number] : 1955 Provider: Alberto Curtis MD Age/Sex: 62/F Location: [facility] Status: Signed Assessment AND Plan 1. Abnormal PFTs (pulmonary function tests) R94.2 Plan Patient has had normalization of lung volumes on recent pulmonary function testing. Clinical impression is this is likely secondary to improved fluid status with salt restriction. No indication for autoimmune workup at this time. Patient's DLCO continues to be at the lower limit of normal and may indicate early pulmonary vascular disease. Patient is not reporting any exposures that would lead to progression of lung disease acutely. Will repeat pulmonary function test and walking oximetry prior to next visit. Obtain complete PFT and walking oximetry prior to next visit Orders Orders: 2. MALIK (dyspnea on exertion) R06.09 Plan Patient is still reporting some dyspnea on exertion, particularly with hills and steps. Unclear etiology at this time. Patient does have normal flows after normalization of lung volumes. Clinical suspicion for cardiac limitation exercise tolerance. Patient does have an aortic valve murmur, but is currently being followed by cardiology. Defer to cardiology for optimization. Optimization per cardiology. Reassess PFT and walking oximetry prior to next visit. Plan Detail Follow Up 1 Year (ESTEPHANIA) HPI 6 M FU: Chief Complaint: Shortness of breath with exertion Details: No E/H/P. not using albuterol. improved salt restriction. still having difficulty on an incline. problems with steps. no cough. Patient is a 62-year-old female, currently under care of Dr. Orozco, who presents for evaluation secondary to shortness of breath on exertion. Since last visit, patient feels she is subjectively improved compared to previous. Patient states her lower extremity swelling is subjectively improved, but is still having some dyspnea with walking up slight inclines or stairs. Patient does have a as needed albuterol at home, but has not been using this. Patient denies any complications such as chest pain, abdominal pain, nausea or vomiting. Patient does not have a cough on a routine basis. Patient places exercise tolerance at approximately 1-2 flights of steps. Patient has made a significant effort and decreasing salt intake. Patient has noted that this has resulted in complete resolution of lower extremity edema in the morning. Patient still occasionally has some edema in the evening, but this typically resolves with minimal elevation. Testing personally reviewed with the patient Complete PFT (08/12/2017): Isolated defect in diffusing capacity with significant improvement compared to previous testing. (FVC 92%, FEV1 94%, DLCO 61%, TLC 95%) Intake Vital Signs09/04/17 Height 5 ft 3 in 09/04/17 Weight: 89.811 kg Intake Visit Reasons: 6 M FU Accompanied by: Self Allergies lisinopril Allergy (Verified 04/19/16 15:13) Unknown Medications Aspirin [Adult Low Dose Aspirin EC] 81 mg PO DAILY 04/19/16 [History Confirmed 04/19/16] Levothyroxine Sodium [Levoxyl] 88 mcg PO DAILY 04/19/16 [History Confirmed 04/19/16] Losartan Potassium [Cozaar] 50 mg PO DAILY 04/19/16 [History Confirmed 04/19/16] Multivitamins,Therapeutic [Multivitamin] 1 tab PO DAILY 04/19/16 [History Confirmed 04/19/16] Fructooligosaccharides/Polydex [Fiber-Stat 15 gm/30 ml Liquid] 15 gm PO DAILY 04/22/16 [History Confirmed 04/22/16] albuterol sulfate HFA 90 mcg/actuation aerosol inhaler 2 puff INHALATION Q4H g 08/28/17 [History Confirmed 08/28/17] [facility] Medical History Acute bronchitis (Resolved) Upper respiratory infection (Resolved) Acute sinusitis (Acute) GERD (gastroesophageal reflux disease) (Chronic) Restrictive lung disease (Chronic) Obesity (Chronic) Hypertension (Chronic) Nonrheumatic mitral (valve) insufficiency (Chronic) Paroxysmal atrial fibrillation (Chronic) Carotid bruit (Chronic) Chest discomfort (Chronic) CAD (coronary artery disease) (Chronic) Dizziness and giddiness (Chronic) MALIK (dyspnea on exertion) (Chronic) Abnormal PFTs (pulmonary function tests) (Chronic) Acute costochondritis (Acute) Chronic cough (Chronic) Surgical History History of cholecystectomy (Resolved) Family History Father Cancer Diabetes Hypertension Mother Heart disease Social History Smoking Status: Never smoker second hand exposure: No alcohol intake: never substance use type: does not use caffeine: Yes what type of physical activity do you participate in: walking frequency: 1-2 times per week Review of Systems Const CONSTITUTIONAL: Positive night sweats and fatigue; negative anorexia, body ache, chills, daytime sleepiness, fever(s), oral thrush, stops breathing during sleep, weight loss, sleeping in chair, weight loss, weight gain, frequent colds, seasonal allergies, other, headache(s) or orthopnea EETM Ear Nose Throat Mouth: Positive hearing normal; negative hard of hearing, hoarseness, dry mouth in morning, change in vision, itchy eyes, eye pain, swallowing Difficulty, ear pain, nose bleed, headache(s), mouth pain, nasal congestion, nasal discharge, post nasal drip, sinus pain, sinus pressure, sore throat or other Cardio Cardiovascular: Positive murmur (Grade 2 out of 6 systolic ejection murmur at the right sternal border); negative chest pain, chest pain at rest, chest pain with activity, irregular heart rhythm, edema, shortness of breath when lying down, palpitations or other Resp Respiratory: Positive as per HPI, shortness of breath shortness of breath: Positive with activity and cough cough: Positive non-productive; negative pain with cough, wheezing, chest congestion, chest tightness, pain on inspiration, inhalers, increase use of rescue inhalers, snoring, apnea or other Gastro Gastrointestional: Negative bloody stools, change in appetite, difficulty swallowing, reflux, hematemesis, melena stool, loose stool, constipation or other Genitourinary: Negative blood in urine, nocturia, pain with urination or other Musc Musculoskeletal: Negative body pain, back pain, neck pain or other Skin/Breast Skin/Breast: Negative dry skin, itching, rash, unusual bruising, breast lump or other Neuro Neurological: Negative restless legs, confusion, weakness or other Psych Psychocological: Negative abnormal sleep pattern, anxiety, thoughts of hurting self/others, hopelessness or other Lymph Lymphatic: Negative easy bleeding, easy bruising, swollen lymph nodes or other Exam Const Constitutional: Positive conversant, obese, cooperative, in no acute respiratory distress, healthy appearing, well developed, well nourished and good hygiene; negative wearing supplemental oxygen Head Head: Positive normocephalic and atraumatic; negative cyanosis of lips/distal nose, microcephalic or macrocephalic Eyes Eye: Positive clear conjunctiva; negative nystagmus or scleral abnormality Ears Ear: Positive hearing normal; negative hard of hearing Nose Nose: Positive external nose normal, septum normal and no nasal discharge; negative epistaxis or nasal polyp Mouth Mouth: Positive oral mucosae normal, good dentition, no lesions and crowded posterior oropharynx; negative post nasal drip or oral thrush present Mallampati Score: III: Mallampati Score Neck Neck: Positive normal visual inspection, thick neck, full ROM and trachea midline; negative lymphadenopathy or JVD Chest Wall Chest: Positive normal inspection of the chest; negative increased A/P diameter, symmetric chest movement, crepitus or tenderness Resp lung sounds: Positive clear to auscultation, good air exchange, normal expiratory time and normal respiratory effort; negative wheezes, rhonchi or rales Cardio Cardiac: Positive murmur (Grade 2 out of 6 systolic ejection murmur at the right sternal border), regular rate, regular rhythm, S1 normal and S2 normal GI GI: Positive obese, normal to inspection and normal bowel sounds; negative distended or ascites Genitourinary: Positive deferred Musc Musculoskeletal: Positive steady gait and ROM normal; negative using an assistive device for ambulation, kyphosis or scoliosis Skin Pulmonary Skin Exam: Positive intact; negative rash, lesion, ulcers, erythema or dermal atrophy Pulses Pulse: Yes radial pulses present Extremities Extremities: Yes capillary refill normal, No clubbing, No cyanosis, No edema Neuro Neurologic: Yes conversant, Yes no focal neuro deficits, Yes normal concentration, Yes understands questions, Yes cooperative, Yes normal cognition, Yes normal coordination Lymph Lymphatic: No lymphadenopathy Psych Appearance: Positive grossly normal Mental Status: Positive mental status grossly normal Mood: Positive congruent mood Affect: Positive normal affect Coding Level of Care Code Off vis,est,level 3 Diagnoses Abnormal PFTs (pulmonary function tests) R94.2 MALIK (dyspnea on exertion) R06.09 09/04/17 1254 <Electronically signed by Alberto Curtis MD> Date Alberto Curtis MD Cosigner Signature: Date (if applicable) CC: Unruly Orozco PULMONARY FUNCTION Observed: 08/12/2017 Status: F Source: [facility] REPORT COMP 2:33 PM [facility] REPOSITORY [facility] Pulmonary Services/Neurology [address] [place] [address] MR#: [id number] Acct: [id number] Name: MADHAVI ANDERSON Rep #: [id number] : 1955 62 From: Alberto Curtis MD Referring Dr: Alberto Curtis MD Status: REG CLI Ordering Dr: Date: Location: PSN Sex: F C COMPLETE PULMONARY FUNCTION TEST INTERPRETATION Brief HPI: Patient is a 62 year old female, currently under the care of myself, who presents to [facility] for complete pulmonary function tests secondary to diagnosis of abnormal PFT. Respiratory therapist reports good effort and reproducible results. Interpretation: Forced expiration spirometry shows no large airways obstructive ventilatory defect with an FEV1 of 94 % predicted. There is no significant bronchodilator response by ATS criteria. Spirograms are of good quality and plateau normally. The respiratory flow volume loop shows a normal pattern. Lung volumes by body plethysmography show a normal total lung capacity at 4.45 L, 95% predicted. All other lung volumes are within normal limits. Diffusion capacity by carbon monoxide is decreased at 61 % predicted. The airway resistance is elevated. Compared to previous pulmonary function tests from 12/23/2016, there has been a significant change in all spirometric values and restriction. Impression: Delayed reduction diffusing capacity consistent with a pulmonary vascular disorder. Significant improvement overall compared to previous testing. 08/12/17 1433 <Electronically signed by Alberto Curtis MD> Date Alberto Curtis MD CC: Alberto Curtis MD; Unruly Orozco Date Dictated: 08/12/171429 Date Transcribed: 08/12/171429 Health Professional: TOOTIE Signed PROGRESS Observed: 07/10/2017 Status: COMPLETED Source: [facility] 8:36 AM [facility] REPOSITORY HNO ID: [id number] Author: Josee Saleh Psr Service: (none) Author Type: (none) Type: Progress Notes Filed: 07/10/2017 8:36 AM Note Text: pap logged, letter sent. Josee Saleh Psr HPV W/GENOTYPE Collected: 06/25/2017 Status: F Source: [facility] 2:32 [facility] REPOSITORY TYPE CODE TESTS RESULT OUT OF REFERENCE UNITS RANGE LAB HPVT16 HPV HighRisk Negative for Type 16 HPV DNA high risk type 16 by PCR. LAB HPVT18 HPV HighRisk Negative for Type 18 HPV DNA high risk type 18 by PCR. LAB HPVHRO HPV HighRisk Negative for Other HPV DNA high risk types: 31,33,35,39,45 ,51,52,56,58,5 9,66,68 by PCR. Result Comment: This test was developed and its performance characteristics determined by [facility] [place] ([facility]). It has not been cleared or approved by the FDA. -[facility] is regulated under CLIA as qualified to perform high-complexity testing. This test is used for clinical purposes. It should not be regarded as inv estigational or for research. Performed By: #### HPVHRR #### [facility] [address] [place], [place] [address] CYTOLOGY Observed: 06/25/2017 Status: C Source: [facility] 2:32 [facility] REPOSITORY ADDITIONAL PROCEDURES PRESENT Specimen originated from [facility] Specimen #: [id number] Submitting Physician: MARY SWEENEY CNP SPECIMEN SUBMITTED A: CERVICAL, SCREENING, FLUID FINAL DIAGNOSIS A. CERVICAL, SCREENING, FLUID Satisfactory for interpretation. Negative for intraepithelial lesion or malignancy. This specimen has been analyzed by the ThinPrep Imaging System, an automated imaging and review system, which assists the laboratory in evaluating cells on ThinPrep Pap tests. Following automated imaging, selected cheatham from every slide are reviewed by a java developer. Luis Eduardo Pollack M.D. (Electronic Signature) ADDITIONAL PROCEDURE(S) HUMAN PAPILLOMA VIRUS Date Ordered: 06/27/2017 Date Reported: 06/30/2017 Procedure Results and Interpretation Negative for HPV DNA high risk type 16 by PCR. Negative for HPV DNA high risk type 18 by PCR. Negative for HPV DNA high risk types: 31,33,35,39,45,51,52,56,58,59,66,68 by PCR. This test was developed and its performance characteristics determined by [facility] [place] ([facility]). It has not been cleared or approved by the FDA. -[facility] is regulated under CLIA as qualified to perform high-complexity testing. This test is used for clinical purposes. It should not be regarded as investigational or for research. CLINICAL DATA ROUTINE EXAM, HPV Testing: Yes, automatic HPV patients over 30 Date of Last Menstrual Period: 06/17/2004 Menstrual History: Post-Menopausal STAINS A: CERVICAL, SCREENING, FLUID THIN PREP POST SPLITTER Date of Report: 07/08/2017 Date of Procedure: 06/25/2017 Date of Receipt: 06/27/2017 Submitted by: MARY SWEENEY CNP Location: [facility] Diagnostic interpretation performed at [facility], [address] [place] [address]. The Pap Smear is a screening test for cervical cancer. False negative results occur with all screening tests, emphasizing the need for rescreening at recommended intervals, and clinical correlation. CNOV Observed: 06/25/2017 Status: COMPLETED Source: [facility] 1:15 PM [facility] REPOSITORY Office Visit (WOOB) MADHAVI ANDERSON ([id number]) 1955 F Date Time Provider Department 06/25/17 1:15 PM MARY SWEENEY (TAIL SAWYER) WOOB During your visit today, we recorded the following information about you: Blood pressure Weight Height 110/60 89.5 kg 1.575 m MARY SWEENEY CNP 06/25/2017 2:39 PM Signed Clerical And Administrative Workers offered: Patient declines. Madhavi Anderson is a 62 year old who presents for her annual gynecologic exam without complaints. Has a 2-yr old great-grandson. Postmenopausal: Yes since age 48 HRT use: No. Last Pap: 2012 normal HPV: 2008 negative History of abnormal pap: Yes, in 20s. LGSIL 04/14 Last mammogram: today pending History of abnormal mammogram: No, has needed additional imaging Sexually active: No Hot flashes: No Night sweats: Yes, twice weekly Vaginal dryness: No Mood swings: No Insomnia: Yes, has trouble staying asleep sometimes Exercise: no Diet: balanced since May Seatbelt use: Yes Obstetric History T3 L2 SAB0 TAB0 Ectopic0 Multiple0 Live Births0 Comment: 0ne child at 5 wks. = spinabifida PAST MEDICAL HISTORY Diagnosis Date - Abnormal glandular Papanicolaou smear of cervix 04/14 Abn. Pap smear (cervix) LGSIL - Abnormal stress test 03/2016 heart cath scheduled for 04/22/2016 - Atrial fibrillation (HCC) - Diabetes mellitus without mention of complication pre-Diabetes mellitus - Pancreatitis, acute - PMH - PAST MEDICAL HISTORY OF CERVICAL DISK DEGENERATION - PMH - PAST MEDICAL HISTORY OF mitral valve reguritation - Unspecified essential hypertension Essential hypertension - Unspecified hypothyroidism Hypothyroidism PAST SURGICAL HISTORY Procedure Laterality Date - HYSTEROSCOPY, DIAGNOSTIC (SEPARATE 04/14 hysteroscopy/curr. UNABLE TO DO - LAPAROSCOPIC CHOLEYCYSTECTOMY 07/15 Cholecystectomy, lap - LIGATE FALLOPIAN TUBE Tubal ligation FAMILY HISTORY Problem Relation Age of Onset - Thyroid Mother TUMOR - Diabetes Father - Cancer Father leukemia - Emphysema Father of ThoracicAA - Diabetes Paternal Grandmother - Stroke Paternal Grandmother - Diabetes Paternal Aunt - Heart Maternal Uncle - Thyroid Sister - Thyroid Brother - Thyroid Brother SOCIAL HISTORY Social History Substance Use Topics - Smoking status: Never Smoker - Smokeless tobacco: Never Used - Alcohol use 0.0 oz/week Comment: occasionally REVIEW OF SYSTEMS Abdomen: No abdominal pain, nausea, vomiting, diarrhea. No bloating, early satiety, indigestion, or increased flatulence. Chronic constipation - has appointment with PCP in July 2017 Bladder: No dysuria, gross hematuria, urinary frequency, urinary urgency, or incontinence Breast: No breast lumps, nipple d/c, overlying skin changes, redness or skin retraction Allergies and current medication updated:Yes EXAM: BP 110/60 Ht 5' 2ANDquot; (1.58m) Wt 197 lb 6.4 oz (89.5kg) LMP 06/17/2004 BMI 36.10 kg/(m2). GENERAL: pleasant, female in no apparent distress HEENT: Normocephalic, atraumatic, mucus membranes moist and no lesions NECK: Supple, full range of motion, no adenopathy and thyroid normal DERMATOLOGY: Normal, without lesions, non-icteric and non-hirsute BREAST: soft, non-tender, symmetric, no dominant mass, normal nipple-areolar complex, no lymphadenopathy and no nipple discharge CHEST: Normal inspiratory effort ABDOMEN: soft, non-tender and no masses PELVIC: external genitalia normal, normal Bartholin's glands, urethra, Foristell's glands, no vulvar lesions, physiologic discharge present, normal appearing perineal body and perianal region, unable to visualize entire cervix and os due to adherence to posterior left vaginal wall. BIMANUAL: uterus normal size, shape and consistency, no adnexal masses, non-tender. Unable to palpate cervix due to adherence to posterior left vaginal wall. NEURO: alert and oriented x3,exam grossly non-focal EXTREMITIES: normal ASSESSMENT/PLAN: 1) Health maintenance: Pap done with HPV. Difficult to collect due to adherence of cervix to posterior left vaginal wall. Mammogram up to date Nutrition, exercise and routine health maintenance exams reviewed. Calcium/Vitamin D supplementation information provided. Colon cancer screening: Does FOBT per PCP 2. 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 Follow up one year or sooner as needed JOSE RAMON CARNEY CNP 06/25/2017 1:41 PM Signed Calcium and Vitamin D Supplementation (from the National Institutes of Health Office of Dietary Supplements 2010) Calcium 600 mg twice daily and Vit D 1000 IU daily. Calcium is required by the body for blood vessel, muscle, hormone and nerve functioning. Most of the body's calcium is stored in the bones and teeth where it supports structure and function. Bone is continuously broken down and reformed. When bone breakdown exceeds formation, especially in postmenopausal women, bone loss can increase the risk of osteoporosis and fractures. In addition to low calcium intake, women who smoke, have a family history of osteoporosis, are thin, or , or who take certain medications such as cancer chemotherapy, seizure mediations and steroids are at increased risk of osteoporosis. The calcium requirements in women change with age. The National Institutes of Health (NIH) recommends: 1000mg elemental calcium for premenopausal women age 19-50 1200mg elemental calcium for postmenopausal women and all women over 50 Milk, yogurt, and cheese are rich natural sources of calcium and are the major food contributors in the [place]. For example, 8oz of milk (whole, lowfat or skim) contains about 300mg calcium, 8oz of yogurt contains 415mg. Nondairy sources include salmon and sardines and vegetables, such as Greek cabbage, kale, and broccoli. Foods fortified with calcium include many fruit juices, tofu and cereals. For more food calcium content information, visit http://ods.od.nih.gov/factsheets/calcium. Calcium supplements come in several different forms. Remember that the recommendations are for millgrams (mg) of elemental calcium which may be less than the total weight of the supplement. The amount of elemental calcium is required to be printed on the label. Calcium carbonate is the least expensive form. It must be taken on a full stomach to be properly absorbed. Some patients may experience gas or constipation. Calcium phosphate and calcium citrate may be taken either with or without food and tend to have less side effects but are generally more expensive. Because of its ability to neutralize stomach acid, calcium carbonate is found in some xqhi-hvg-oftmrms antacid products, such as Tums? and Rolaids?. Depending on its strength, each chewable pill or softchew provides 200 to 400 mg of elemental calcium. The percentage of calcium absorbed depends on the total amount of elemental calcium consumed at one time. Absorption is highest in doses ANDlt;500mg. So a woman who takes 1,000mg/day of calcium from supplements should split the dose and take 500mg at two separate times during the day. Too much calcium can cause kidney stones, constipation, difficulty absorbing other nutrients and calcium buildup in blood vessels. Women under 50 should not exceed 2500mg/day (2000mg/day for women over 50) of calcium from food and supplements. Excessive alcohol and caffeine intake can inhibit absorption of calcium. Calcium can reduce the absorption of some medications if taken at the same time of day (bisphosphonates, thyroid medication, Phenytoin and other seizure medications, some antibiotics and iron supplements). Vitamin D promotes calcium absorption in the gut and maintains adequate blood levels of calcium and phosphate for normal bone growth and bone remodeling. Vitamin D also helps regulate cell growth as well as nerve, muscle and immune system function. Vitamin D is produced in the skin as a result of ultraviolet sunlight rays and must be altered in the liver and kidney to become its active form. Recommended intake according to the National Institutes of Health is 600 International Units (IU) for girls and women ages 1-70 and 800 IU for women over 70. Very few foods in nature contain vitamin D. The flesh of fatty fish (such as salmon, tuna, and mackerel) and fish liver oils are among the best sources. Small amounts of vitamin D are found in beef liver, cheese, mushrooms and egg yolks. Most people meet at least some of their vitamin D needs through exposure to sunlight. Season, time of day, length of day, cloud cover, smog, skin melanin content, and sunscreen are among the factors that affect UV radiation exposure and vitamin D synthesis. Despite the importance of the sun for vitamin D synthesis, it is prudent to limit exposure of skin to sunlight and avoid tanning beds. UV radiation is a carcinogen responsible for most of the estimated 1.5 million skin cancers that occur annually in the [place]. Lifetime cumulative UV damage to skin is also responsible for some age-associated dryness and other cosmetic changes. In supplements and fortified foods, vitamin D is available in two forms, D2 (ergocalciferol) and D3 (cholecalciferol). The two are equivalent at normal supplement doses. For women who require high supplement doses because of vitamin D deficiency, D3 may work better to raise blood levels. Some medications can prevent proper absorption of Vitamin D. These include laxatives, corticosteroids like prednisone, the seizure drugs phenobarbital and phenytoin, the weight-loss drug orlistat ( Xenical? and AlliTM) and the cholesterol-lowering drug cholestyramine (Questran?, LoCholest?, and Prevalite?). Talk to your doctor about adjusting your recommended daily vitamin D dosage if you take these medications. You should not exceed 4000 mg of vitamin D supplementation daily unless specifically prescribed by your doctor. Josee Saleh Psr 07/10/2017 8:36 AM Signed pap logged, letter sent. 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 #:[id number] HPV W/GENOTYPE [[id number]] Order #: [id number]. #:[id number] Prescriptions as of 06/25/2017 Sig: HYDROCHLOROTHIAZIDE 12.5 MG T* Take 12.5 mg by mouth once da* LOSARTAN 50 MG TABLET Take 50 mg by mouth once jesse* LEVOTHYROXINE 88 MCG TABLET Take 88 mcg by mouth once jessica* ASPIRIN 81 MG TABLET Take 81 mg by mouth once jesse* DAILY MULTIVITAMIN TABLET Problem List As Of Date 06/25/2017 Noted Resolved Stricture and stenosis of cervix [N88.2] INVALID FOR*03/20/2015 PAP SMEAR CERVIX W LGSIL [R87.612] INVALID FOR* Symptomatic menopausal or female climacteric st*INVALID FOR*03/20/2015 ATROPHIC VAGINITIS [N95.2] INVALID FOR* Abdominal pain, generalized [R10.84] INVALID FOR*02/01/2011 Other instructions from your clinician: Calcium and Vitamin D Supplementation (from the National Institutes of Health Office of Dietary Supplements 2010) Calcium 600 mg twice daily and Vit D 1000 IU daily. Calcium is required by the body for blood vessel, muscle, hormone and nerve functioning. Most of the body's calcium is stored in the bones and teeth where it supports structure and function. Bone is continuously broken down and reformed. When bone breakdown exceeds formation, especially in postmenopausal women, bone loss can increase the risk of osteoporosis and fractures. In addition to low calcium intake, women who smoke, have a family history of osteoporosis, are thin, or , or who take certain medications such as cancer chemotherapy, seizure mediations and steroids are at increased risk of osteoporosis. The calcium requirements in women change with age. The National Institutes of Health (NIH) recommends: 1000mg elemental calcium for premenopausal women age 19-50 1200mg elemental calcium for postmenopausal women and all women over 50 Milk, yogurt, and cheese are rich natural sources of calcium and are the major food contributors in the [place]. For example, 8oz of milk (whole, lowfat or skim) contains about 300mg calcium, 8oz of yogurt contains 415mg. Nondairy sources include salmon and sardines and vegetables, such as Greek cabbage, kale, and broccoli. Foods fortified with calcium include many fruit juices, tofu and cereals. For more food calcium content information, visit http://ods.od.nih.gov/factsheets/calcium. Calcium supplements come in several different forms. Remember that the recommendations are for millgrams (mg) of elemental calcium which may be less than the total weight of the supplement. The amount of elemental calcium is required to be printed on the label. Calcium carbonate is the least expensive form. It must be taken on a full stomach to be properly absorbed. Some patients may experience gas or constipation. Calcium phosphate and calcium citrate may be taken either with or without food and tend to have less side effects but are generally more expensive. Because of its ability to neutralize stomach acid, calcium carbonate is found in some tqve-ntp-czzpids antacid products, such as Tums? and Rolaids?. Depending on its strength, each chewable pill or softchew provides 200 to 400 mg of elemental calcium. The percentage of calcium absorbed depends on the total amount of elemental calcium consumed at one time. Absorption is highest in doses <500mg. So a woman who takes 1,000mg/day of calcium from supplements should split the dose and take 500mg at two separate times during the day. Too much calcium can cause kidney stones, constipation, difficulty absorbing other nutrients and calcium buildup in blood vessels. Women under 50 should not exceed 2500mg/day (2000mg/day for women over 50) of calcium from food and supplements. Excessive alcohol and caffeine intake can inhibit absorption of calcium. Calcium can reduce the absorption of some medications if taken at the same time of day (bisphosphonates, thyroid medication, Phenytoin and other seizure medications, some antibiotics and iron supplements). Vitamin D promotes calcium absorption in the gut and maintains adequate blood levels of calcium and phosphate for normal bone growth and bone remodeling. Vitamin D also helps regulate cell growth as well as nerve, muscle and immune system function. Vitamin D is produced in the skin as a result of ultraviolet sunlight rays and must be altered in the liver and kidney to become its active form. Recommended intake according to the National Institutes of Health is 600 International Units (IU) for girls and women ages 1-70 and 800 IU for women over 70. Very few foods in nature contain vitamin D. The flesh of fatty fish (such as salmon, tuna, and mackerel) and fish liver oils are among the best sources. Small amounts of vitamin D are found in beef liver, cheese, mushrooms and egg yolks. Most people meet at least some of their vitamin D needs through exposure to sunlight. Season, time of day, length of day, cloud cover, smog, skin melanin content, and sunscreen are among the factors that affect UV radiation exposure and vitamin D synthesis. Despite the importance of the sun for vitamin D synthesis, it is prudent to limit exposure of skin to sunlight and avoid tanning beds. UV radiation is a carcinogen responsible for most of the estimated 1.5 million skin cancers that occur annually in the [place]. Lifetime cumulative UV damage to skin is also responsible for some age-associated dryness and other cosmetic changes. In supplements and fortified foods, vitamin D is available in two forms, D2 (ergocalciferol) and D3 (cholecalciferol). The two are equivalent at normal supplement doses. For women who require high supplement doses because of vitamin D deficiency, D3 may work better to raise blood levels. Some medications can prevent proper absorption of Vitamin D. These include laxatives, corticosteroids like prednisone, the seizure drugs phenobarbital and phenytoin, the weight-loss drug orlistat ( Xenical? and AlliTM) and the cholesterol-lowering drug cholestyramine (Questran?, LoCholest?, and Prevalite?). Talk to your doctor about adjusting your recommended daily vitamin D dosage if you take these medications. You should not exceed 4000 mg of vitamin D supplementation daily unless specifically prescribed by your doctor. Disposition: Return in 1 year (on 06/25/2018) for Annual Exam. Follow-up and Disposition History Recorded Letter Text [address] [address] [facility] [address] [facility]: [id number] Dear Madhavi, We are pleased to inform you that your recent Pap Test was within normal limits. Because Pap tests are so effective in the early detection of cervical cancer, you are encouraged to continue having the test at regular intervals. You will be due for a 1 year Gynecological Exam after this date 06/25/2018. If you have any questions regarding the above information, do not hesitate to call our office at between the hours of 8:00 a.m. and 5:00 p.m. Sincerely, Mary Sweeney [facility] Encounter Status:Closed by MARY SWEENEY on 06/25/17 CNCO Observed: 06/25/2017 Status: COMPLETED Source: CARRIER 1:10 PM [facility] REPOSITORY [facility] ID: [id number] Author: Mammography Coordinator Service: (none) Author Type: Physician Type: Letter Filed: 06/26/2017 11:32 PM Note Text: June 25, 2017 PID: [id number] Madhavi [place]ae[place] [id number] Dear Ms. Anderson, We are pleased to inform you that the results of your recent breast imaging exam on 06/25/2017 are normal. Early detection of cancer is very important. We also understand recommendations regarding breast cancer screening are controversial. Please discuss with your primary care provider which strategy is best for you and whether a mammogram is right for you. Your imaging studies and report will be kept on file at [facility] as part of your permanent medical record and are available for your continuing care. Thank you for allowing us to help in meeting your health care needs. Sincerely, Dr. Nguyễn Interpreting Radiologist [facility] (Normal over 40) PROGRESS Observed: 06/25/2017 Status: COMPLETED Source: CARRIER 1:07 PM [facility] REPOSITORY [facility] ID: [id number] Author: Mary Sweeney Service: (none) Author Type: Nurse Practitioner Type: Progress Notes Filed: 06/25/2017 2:39 PM Note Text: Clerical And Administrative Workers offered: Patient declines. Madhavi Anderson is a 62 year old who presents for her annual gynecologic exam without complaints. Has a 2-yr old great-grandson. Postmenopausal: Yes since age 48 HRT use: No. Last Pap: 2012 normal HPV: 2009 negative History of abnormal pap: Yes, in 20s. LGSIL 04/14 Last mammogram: today pending History of abnormal mammogram: No, has needed additional imaging Sexually active: No Hot flashes: No Night sweats: Yes, twice weekly Vaginal dryness: No Mood swings: No Insomnia: Yes, has trouble staying asleep sometimes Exercise: no Diet: balanced since May Seatbelt use: Yes Obstetric History T3 L2 SAB0 TAB0 Ectopic0 Multiple0 Live Births0 Comment: 0ne child at 5 wks. = spinabifida PAST MEDICAL HISTORY Diagnosis Date - Abnormal glandular Papanicolaou smear of cervix 04/14 Abn. Pap smear (cervix) LGSIL - Abnormal stress test 03/2016 heart cath scheduled for 04/22/2016 - Atrial fibrillation (HCC) - Diabetes mellitus without mention of complication pre-Diabetes mellitus - Pancreatitis, acute - PMH - PAST MEDICAL HISTORY OF CERVICAL DISK DEGENERATION - PMH - PAST MEDICAL HISTORY OF mitral valve reguritation - Unspecified essential hypertension Essential hypertension - Unspecified hypothyroidism Hypothyroidism PAST SURGICAL HISTORY Procedure Laterality Date - HYSTEROSCOPY, DIAGNOSTIC (SEPARATE 04/14 hysteroscopy/curr. UNABLE TO DO - LAPAROSCOPIC CHOLEYCYSTECTOMY 07/15 Cholecystectomy, lap - LIGATE FALLOPIAN TUBE Tubal ligation FAMILY HISTORY Problem Relation Age of Onset - Thyroid Mother TUMOR - Diabetes Father - Cancer Father leukemia - Emphysema Father of ThoracicAA - Diabetes Paternal Grandmother - Stroke Paternal Grandmother - Diabetes Paternal Aunt - Heart Maternal Uncle - Thyroid Sister - Thyroid Brother - Thyroid Brother SOCIAL HISTORY Social History Substance Use Topics - Smoking status: Never Smoker - Smokeless tobacco: Never Used - Alcohol use 0.0 oz/week Comment: occasionally REVIEW OF SYSTEMS Abdomen: No abdominal pain, nausea, vomiting, diarrhea. No bloating, early satiety, indigestion, or increased flatulence. Chronic constipation - has appointment with PCP in July 2017 Bladder: No dysuria, gross hematuria, urinary frequency, urinary urgency, or incontinence Breast: No breast lumps, nipple d/c, overlying skin changes, redness or skin retraction Allergies and current medication updated:Yes EXAM: BP 110/60 Ht 5' 2 (1.58m) Wt 197 lb 6.4 oz (89.5kg) LMP 06/17/2004 BMI 36.10 kg/(m2). GENERAL: pleasant, female in no apparent distress HEENT: Normocephalic, atraumatic, mucus membranes moist and no lesions NECK: Supple, full range of motion, no adenopathy and thyroid normal DERMATOLOGY: Normal, without lesions, non-icteric and non-hirsute BREAST: soft, non-tender, symmetric, no dominant mass, normal nipple-areolar complex, no lymphadenopathy and no nipple discharge CHEST: Normal inspiratory effort ABDOMEN: soft, non-tender and no masses PELVIC: external genitalia normal, normal Bartholin's glands, urethra, Foristell's glands, no vulvar lesions, physiologic discharge present, normal appearing perineal body and perianal region, unable to visualize entire cervix and os due to adherence to posterior left vaginal wall. BIMANUAL: uterus normal size, shape and consistency, no adnexal masses, non-tender. Unable to palpate cervix due to adherence to posterior left vaginal wall. NEURO: alert and oriented x3,exam grossly non-focal EXTREMITIES: normal ASSESSMENT/PLAN: 1) Health maintenance: Pap done with HPV. Difficult to collect due to adherence of cervix to posterior left vaginal wall. Mammogram up to date Nutrition, exercise and routine health maintenance exams reviewed. Calcium/Vitamin D supplementation information provided. Colon cancer screening: Does FOBT per PCP 2. 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 Follow up one year or sooner as needed MARY SWEENEY CNP [facility] SCREENING Observed: 06/25/2017 Status: F Source: CARRIER 1:01 PM [facility] REPOSITORY * * *Final Report* * * DATE OF EXAM: Jun 25 2017 1:01PM [facility] [id number] - [facility] SCREENING / PROCEDURE REASON: Encounter for screening mammogram for malignant neoplasm of breast * * * * Physician Interpretation * * * * RESULT: #[id number] - [facility] SCREENING BILATERAL DIGITAL SCREENING MAMMOGRAM WITH CAD: 06/25/2017 HISTORY: Encounter For Screening Mammogram For Malignant Neoplasm Of Breast /priors available for comparison. RESULT: TECHNIQUE: The study was acquired using full field digital technology and interpreted from soft copy. Current study was also evaluated with a Computer Aided Detection (CAD). Comparison is made to exams dated: 04/08/2016 mammogram, 03/20/2015 mammogram - [facility], 03/16/2014 mammogram, 03/01/2013 mammogram, 02/13/2012 mammogram - [facility], and 08/21/2009 mammogram. There are scattered fibroglandular elements in both breasts. No significant masses, calcifications, or other findings are seen in either breast. There has been no significant interval change. IMPRESSION: NEGATIVE There is no mammographic evidence of malignancy. A 1 year screening mammogram is recommended. The exam was reviewed by a staff physician. toni Johns M.D., M.D./judy:06/25/2017 13:10:55 Tire Setter: Lauren HOLT(Kiana)(Amanda), [facility] letter sent: Normal over 40 Mammogram BI-RADS: 1 Negative Health Professional: Judy Transcribe Date/Time: Jun 25 2017 1:02P Dictated by: KEL DELACRUZ MD This examination was interpreted and the report reviewed and electronically signed by: MARIELA NGUYỄN MD on Jun 25 2017 1:10PM EST [id number] PROCEDURE Observed: 06/25/2017 Status: COMPLETED Source: CARRIER 12:48 PM [facility] REPOSITORY O ID: [id number] Author: Lauren (RtOscar Lozoya Service: (none) Author Type: Sterile Tech Type: Procedures Filed: 06/25/2017 1:00 PM Note Text: Radiology Service Progress Note PATIENT NAME: Madhavi Anderson DATE OF SERVICE: June 25, 2017 TIME: 12:48 PM PATIENT IDENTITY VERIFICATION COMPLETED USING TWO (2) METHODS: Patient confirmed name verbally and Date of . PATIENT GENDER DATA: Female. status: : No status: NO. PATIENT RELEVANT IMPLANT DATA REVIEWED: Not Applicable RADIOLOGY DEPARTMENT: [facility] DATA: Not applicable SIGNED BY: RT Lisandra June 25, 2017 12:48 PM ALLERGIES ALLERGIES DATE TYPE / CODE NAME / CODE REACTION SEVERITY SOURCE 05/21/2018 Drug lisinopril/F006 Unknown Unknown [place] Allergy/266995643(S 885811(RXNORM) [facility]) Hospital Repository Miscellaneous No Known Moderate Ag [facility] Allergy/280962306(S Allergies (Severity [facility] CT) Modifier) [facility] (Qualifier Repository Value) Drug NO KNOWN [place] Class/[id number](SNO ALLERGIES [facility]) [place] Repository ENCOUNTERS ENCOUNTERS ADMIT/DISCHARGE ACCOUNT ADMITTING ENCOUNTER LOCATION SOURCE NUMBER CLASS 05/29/2018 [id number] Ambulatory BMSBuilding:B [place] Repository 05/29/2018 [id number] Ambulatory BMSBuilding:B [place] [facility] Repository 05/29/2018 [id number] Ambulatory [facility] ing:[facility] Repository 05/21/2018/05/21/19 [id number] Ambulatory BMSBuilding:[place] [address] [place].[facility] Repository 01/14/2018/01/15/20 [id number] UNRULY OROZCO Ambulatory [facility] [place] [address] [place] [address] Repository 10/23/2017 [id number] Ambulatory [facility] ing:[facility] Repository 10/23/2017 [id number] Ambulatory BMSBuilding:B [place] Repository 10/10/2017/10/11/19 [id number] Ambulatory BMSBuilding:[address] [place] [address] MS.[facility] Repository 10/07/2017 [id number] Ambulatory BMS [facility] Repository 09/16/2017/09/17/19 [id number] UNRULY OROZCO Ambulatory [address] Repository 09/04/2017/09/05/19 [id number] Ambulatory BMSBuilding:B Dayan 18 MS.PMW [facility] Repository 08/12/2017 [id number] Ambulatory BMSBuilding:W Dayan [facility] Repository 08/12/2017 [id number] Ambulatory [facility] ing:PSN Repository 06/25/2017/06/26/19 [id number] Ambulatory [address] Repository 06/25/2017/06/25/19 [id number] Ambulatory [address] Repository PAYERS PAYERS ENCOUNTER GUARANTOR PAYER SUBSCRIBER SOURCE 05/29/2018 MADHAVI A Primary MADHAVI A Dayan [id number] Insurance:MEDICAL BECKETTDOB: [facility] [id number] Number: Repository [id number]: [id number] [phone] () Date:8722-89-88IC[address] [address]WE: 05/29/2018 Secondary NOT GIVENUNK [place] Insurance:SELF PAY [facility] Number: Effective Repository Date:2018-05-29 05/29/2018 MADHAVI A Primary MADHAVI A [place] [id number] Insurance:MEDICAL BECKETTDOB: [facility] [id number] Number: Repository [id number]: [phone] [id number] [phone] () Date:3301-48-99DS[address] [address]NC: 05/29/2018 Secondary NOT GIVENUNK [place] Insurance:SELF PAY [facility] Number: Effective Repository Date:2018-05-29 05/29/2018 MADHAVI A Primary MADHAVI A Dayan [id number] Insurance:MEDICAL BECKETTDOB: [facility] 3996-09[place]VI[place] Number: Repository [id number]: [phone] [id number] [phone] (HP) Date:3295-52-29GK[address] [address]NG: 05/29/2018 Secondary NOT GIVENUNK Dayan Insurance:SELF PAY [facility] Number: Effective Repository Date:2018-05-21 05/21/2018 MADHAVI A Primary MADHAVI A Dayan [id number] Insurance:MEDICAL BECKETTDOB: [facility] 4963-02[place]ONE[place] Number: Repository [id number]: [id number] [phone] (HP) Date:8119-41-98XC[address] [address]IG: 05/21/2018 Secondary NOT GIVENUNK Dayan Insurance:SELF PAY [facility] Number: Effective Repository Date:2018-05-21 01/14/2018 MADHAVI A Primary MADHAVI A Ag Valdezlydia BECKETTDOB: Insurance:AULTCAREPoli [facility] cy Number: [id number] [place] [address] [id number] [place] Date:7776-20-93NqedSuther[place], [place] [address]Vln: [phone]) Name: [id number] [phone] () 10/23/2017 MADHAVI A Primary MADHAVI A [place] [id number] Insurance:AULTCAREPoli BECKETTDOB: Replaced by [facility] cy Number: [id number], [place] [id number] Repository [address]Bny: ([phone]) Date:7397-40-10XA [phone] () [address] [address]BN: 10/23/2017 Secondary NOT GIVENUNK Dayan Insurance:SELF PAY [facility] Number: Effective Repository Date:2017-10-10 10/23/2017 MADHAVI A Primary MADHAVI A Dayan [id number] Insurance:AULTCAREPoli BECKETTDOB: [facility] cy Number: [id number], [place] [id number] Repository [address]Fnd: ([phone]) Date:6688-51-93UJ [phone] () [address] [address]TJ: 10/23/2017 Secondary NOT GIVENUNK [place] Insurance:SELF PAY [facility] Number: Effective Repository Date:2017-10-23 10/10/2017 MADHAVI A Primary MADHAVI A [place] [id number] Insurance:AUCAREPoli BECKETTDOB: [facility] SHAYLA cy Number: [id number], [place] [id number] Repository [address]Cdi: ([phone]) Date:2863-59-83JJ [phone] () [address] [address]UB: 10/10/2017 Secondary NOT GIVENUNK [place] Insurance:SELF PAY [facility] Number: Effective Repository Date:2017-10-10 10/07/2017 MADHAVI A Primary MADHAVI A Dayan [id number] Insurance:AULTCAREPoli BECKETTDOB: [facility] SHAYLA cy Number: [id number], [place] [id number] Repository [address]Nfu: ([phone]) Date:6651-29-24SG [phone] () [address] [address]HD: 10/07/2017 Secondary NOT GIVENUNK [place] Insurance:SELF PAY [facility] Number: Effective Repository Date:2017-10-07 09/16/2017 MADHAVI A Primary MADHAVI A Ag Kassidy BECKETTDOB: Insurance:AULTCARE BECKETTDOB: [facility] [id number] [id number] [facility] SHAYLA Number: SHAYLA Repository [place], [place] [id number] [place], [place] [address]Tzu: ([phone]) Date:Plan Name:A2 [id number] [phone] () 09/04/2017 MADHAVI A Primary MADHAVI A [place] [id number] Insurance:AULTCAREPoli BECKETTDOB: Community [facility] cy Number: [id number], [place] [id number] Repository [address]Qed: ([phone]) Date:5472-69-08GJ [phone] () [address] [place] [address]IN: 09/04/2017 Secondary NOT GIVENUNK [place] Insurance:SELF PAY [facility] Number: Effective Repository Date:2017-04-21 08/12/2017 Madhavi A Primary Madhavi A [place] [id number] Insurance:AULTCAREPoli BeckettDOB: [facility] Shayla cy Number: [id number], [place] [id number] Repository [address]Lli: ([phone]) Date:8246-78-46OL [phone] () [address] [place] [address]QK: 08/12/2017 Secondary NOT GIVENUNK Dayan Insurance:SELF PAY [facility] Number: Effective Repository Date:2017-08-12 08/12/2017 Madhavi A Primary Madhavi A [place] [id number] Insurance:AULTCAREPoli BeckettDOB: [facility] Shayla cy Number: [id number], [place] [id number] Repository [address]Pjx: ([phone]) Date:0385-59-93OZ [phone] () [address] [place] [phone]: 08/12/2017 Secondary NOT GIVENUNK Dayan Insurance:SELF PAY [facility] Number: Effective Repository Date:2017-02-20
== END ==
PROVIDERS: Family Provider Family Medicine; PCP Family Medicine; Referring Provider Internal Medicine Cardiovascular Disease; Visit Provider Internal Medicine Cardiovascular Disease
DX: I34.0 Nonrheumatic mitral (valve) insufficiency (principal); R09.89 Other specified symptoms and signs involving the circulatory and respiratory systems
CPT/HCPCS: 93306; 93880

== ENCOUNTER → 2018-08-13 13:17 | Outpatient (CLI) | payer OTHER, SELFPAY ==
[2018-05-21 15:51] VITALS: BMI 33.8
--- NOTE | 2018-08-13 15:07 | PFTCOMP ---
COMPLETE PULMONARY FUNCTION TEST INTERPRETATION Brief HPI: Patient is a 63 year old female, currently under the care of myself, who presents to [facility] for complete pulmonary function tests secondary to diagnosis of dyspnea. Respiratory therapist reports good effort and reproducible results. Interpretation: Forced expiration spirometry shows no large airways obstructive ventilatory defect with an FEV1 of 83% predicted. There is no significant bronchodilator response by strict ATS criteria. Spirograms are of good quality and plateau normally. The respiratory flow volume loop shows a normal pattern. Lung volumes by body plethysmography show a decreased total lung capacity at 3.47 L, 76% predicted. All other lung volumes are reduced symmetrically. Diffusion capacity by carbon monoxide is at the lower limit of normal at 69% predicted. The airway resistance is normal. Compared to previous pulmonary function tests from 12/23/2016, there has been a significant improvement in FVC, FEV1 and TLC by 13%, 13% and 22%. Impression: Mild restrictive ventilatory defect with significant improvement compared to previous study.
== END ==
PROVIDERS: Family Provider Family Medicine; PCP Family Medicine; Referring Provider Nurse Practitioner Acute Care; Visit Provider Nurse Practitioner Acute Care
DX: R94.2 Abnormal results of pulmonary function studies (principal)
CPT/HCPCS: 94060; 94726; 94729

== ENCOUNTER → 2018-08-18 12:39 | Outpatient (CLI) | payer OTHER, SELFPAY ==
[2018-05-21 15:51] VITALS: BMI 33.8
[2018-08-18 13:19] VITALS: PULSE 100; PULSE 74; PULSE 76; PULSE 81; PULSE 90; PULSE 92; PULSE 98; PULSE 99; O2SAT 95; O2SAT 96; O2SAT 97; O2SAT 98
--- NOTE | 2018-08-19 12:47 | PCM.PSN.6M ---
PSN 6 Minute Walk Test - 6 Minute Walk Test 6 Minute Walk Test: 6 Minute Walk Test PSN:6-Minute Walk Test Start: 08/18/18 13:19 Freq: Status: Active Protocol: RESP.6MINW Document 08/18/18 13:19 ON LICENSE OF [facility] (Rec: 08/18/18 13:23 ON LICENSE OF [facility] [id number]) 6 Minute Walk Test Date Performed 08/18/18 Time Performed 13:00 Height 5 ft 2.5 in Weight: 190 lb Weight in Pounds 190.[address]: Sofi Gibbons Assistive device used: None Pre-test Oxygen Delivery Method Room Air Pulse Ox (%) 97 Pulse Rate (60-100 beats/min) 74 Dyspnea Terrie Scale (0-10) 0 1st minute Oxygen Delivery Method Room Air Pulse Ox (%) 95 Pulse Rate (60-100 beats/min) 81 Dyspnea Terrie Scale (0-10) 0 Number of Rests Taken 0 2nd minute Oxygen Delivery Method Room Air Pulse Ox (%) 96 Pulse Rate (60-100 beats/min) 90 Dyspnea Terrie Scale (0-10) 0 Number of Rests Taken 0 3rd minute Oxygen Delivery Method Room Air Pulse Ox (%) 95 Pulse Rate (60-100 beats/min) 92 Dyspnea Terrie Scale (0-10) 0 Number of Rests Taken 0 4th minute Oxygen Delivery Method Room Air Pulse Ox (%) 95 Pulse Rate (60-100 beats/min) 99 Dyspnea Terrie Scale (0-10) 0 Number of Rests Taken 0 5th minute Oxygen Delivery Method Room Air Pulse Ox (%) 96 Pulse Rate (60-100 beats/min) 100 Dyspnea Terrie Scale (0-10) 0 Number of Rests Taken 0 6th minute Oxygen Delivery Method Room Air Pulse Ox (%) 95 Pulse Rate (60-100 beats/min) 98 Dyspnea Terrie Scale (0-10) 0 Number of Rests Taken 0 Post-test Oxygen Delivery Method Room Air Pulse Ox (%) 98 Pulse Rate (60-100 beats/min) 76 Dyspnea Terrie Scale (0-10) 0 Full Laps Walked 26 Partial Lap, Number of Tiles Walked 25 Total Distance Walked (ft) 1559 - Interpretation Interpretation: The patient ambulated 1559 feet over the course of 6 minutes beginning on room air without assistive devices or breaks. Pretesting oxygen saturation was noted to be 97% on room air. With ambulation, the vivian oxygen saturation was 95%. There was no significant exertional oxygen desaturation. - Recommendations Recommendations: There is no indication for the use of supplemental oxygen at this time.
== END ==
PROVIDERS: Family Provider Family Medicine; PCP Family Medicine; Referring Provider Nurse Practitioner Acute Care; Visit Provider Nurse Practitioner Acute Care
DX: R94.2 Abnormal results of pulmonary function studies (principal)
CPT/HCPCS: 94618

== ENCOUNTER → 2020-06-09 14:52 | Outpatient (CLI) | payer OTHER, SELFPAY ==
[2020-05-30 12:34] VITALS: BMI 33.5
--- NOTE | 2020-06-09 14:55 | ECHOD_ITS ---
Reason For Study: MV Disorder Procedure This was a 2D Doppler, Color Flow transthoracic echocardiogram. The study was technically difficult. Exam performed in department. Left Ventricle Normal LV size. Left ventricular systolic function is normal. The estimated ejection fraction is 60 %. Stage 1 diastolic dysfunction. No regional wall motion abnormalities noted. Right Ventricle Normal RV size. Normal systolic function. Atria Normal left atrium. Normal right atrium. Mitral Valve Normal mitral valve. Tricuspid Valve Normal tricuspid valve. Mild tricuspid valve insufficiency. Aortic Valve Normal aortic valve. Great Vessels Normal aortic root. The pulmonary artery is normal size. Normal inferior vena cava. Pericardium/Pleural No pericardial effusion. MMode/2D Measurements & Calculations LVIDd: 4.7 cm IVSd: 0.91 cm Ao root diam: 2.9 cm LVIDs: 2.9 cm LVPWd: 0.90 cm LA dimension: 3.8 cm FS: 38.5 % LAV(MOD-bp): 43.9 ml LA A4 area: 14.5 cm2 RA A4 area: 12.4 cm2 LAV(MOD-bp) Indexed: 23.6 ml/m2 LAV(MOD-sp2): 52.7 ml LAV(MOD-sp4): 35.5 ml Time Measurements MV dec time: 0.34 sec Doppler Measurements & Calculations MV E max kolby: 82.0 cm/sec Lat Peak E' Kolby: 13.2 cm/sec Med Peak E' Kolby: 10.3 cm/sec MV A max kolby: 90.6 cm/sec E/E' lat: 6.2 E/E' med: 8.0 MV E/A: 0.90 MV V2 max: 117.6 cm/sec MV P1/2t max kolby: 116.8 cm/sec Ao V2 max: 198.5 cm/sec MV max P.5 mmHg MV P1/2t: 87.6 msec Ao max P.8 mmHg MV V2 mean: 55.7 cm/sec Ao V2 mean: 130.8 cm/sec MV mean P.5 mmHg MV dec slope: 390.8 cm/sec2 Ao mean P.0 mmHg MV V2 VTI: 38.9 cm MVA(P1/2t): 2.5 cm2 Ao V2 VTI: 49.1 cm LV V1 max: 118.8 cm/sec PA V2 max: 72.5 cm/sec LV V1 max P.6 mmHg LV V1 mean P.3 mmHg LV V1 mean: 86.3 cm/sec LV V1 VTI: 29.4 cm Interpretation Summary Normal LV size. Left ventricular systolic function is normal. The estimated ejection fraction is 60 %. Stage 1 diastolic dysfunction. Ordering Physician: Anish Contreras Referring Physician: Unruly Orozco Performed By: Urbano Meraz RCS
== END ==
PROVIDERS: PCP Family Medicine; Referring Provider Internal Medicine Cardiovascular Disease; Visit Provider Internal Medicine Cardiovascular Disease
DX: I05.9 Rheumatic mitral valve disease, unspecified (principal)
CPT/HCPCS: 93306

== ENCOUNTER 2021-06-11 12:55 | Outpatient (CLI) | payer OTHER, SELFPAY ==
--- NOTE | 2021-06-11 12:59 | ECHOD_ITS ---
Reason For Study: Murmur Procedure This was a 2D Doppler, Color Flow transthoracic echocardiogram. Technically difficult apical window. Images attempted with patient supine and in left lateral positions. Exam performed in department. Left Ventricle Normal LV size. Left ventricular systolic function is normal. The estimated ejection fraction is 55 %. Normal diastology for age. No regional wall motion abnormalities noted. Right Ventricle Normal RV size. Normal systolic function. Atria Normal left atrium. Normal right atrium. Mitral Valve Normal mitral valve. Tricuspid Valve Normal tricuspid valve. Aortic Valve Normal aortic valve. Trisinus/trileaflet aortic valve. Mild (1+) aortic valve insufficiency. Pulmonic Valve Normal pulmonic valve. Great Vessels Normal aortic root. The pulmonary artery is normal size. Normal inferior vena cava. Pericardium/Pleural No pericardial effusion. MMode/2D Measurements & Calculations LVIDd: 4.7 cm IVSd: 0.82 cm Ao root diam: 2.9 cm LVIDs: 3.1 cm LVPWd: 0.93 cm LA dimension: 3.6 cm RVDd: 3.4 cm FS: 34.8 % LAV(MOD-bp): 49.7 ml LA A4 area: 14.5 cm2 RA A4 area: 11.1 cm2 LAV(MOD-bp) Indexed: 26.9 ml/m2 LAV(MOD-sp2): 56.1 ml LAV(MOD-sp4): 38.5 ml Time Measurements MV dec time: 0.20 sec Doppler Measurements & Calculations MV E max kolby: 89.5 cm/sec Lat Peak E' Kolby: 11.4 cm/sec Med Peak E' Kolby: 8.8 cm/sec MV A max kolby: 87.6 cm/sec E/E' lat: 7.9 E/E' med: 10.2 MV E/A: 1.0 MV V2 max: 100.2 cm/sec MV P1/2t max kolby: 99.2 cm/sec Ao V2 max: 191.3 cm/sec MV max P.0 mmHg MV P1/2t: 109.9 msec Ao max P.6 mmHg MV V2 mean: 54.6 cm/sec MV dec slope: 264.3 cm/sec2 MV mean P.4 mmHg MVA(P1/2t): 2.0 cm2 MV V2 VTI: 35.4 cm AI max kolby: 261.9 cm/sec LV V1 max: 104.9 cm/sec PA V2 max: 73.2 cm/sec AI max P.4 mmHg LV V1 max P.4 mmHg AI dec slope: 112.4 cm/sec2 AI P1/2t: 682.8 msec ECHO/Echo Complete Interpretation Summary Normal LV size. Left ventricular systolic function is normal. The estimated ejection fraction is 55 %. Mild (1+) aortic valve insufficiency. Ordering Physician: Delaney Burleson Referring Physician: Unruly Orozco Performed By: Urbano Meraz RCS
== END 2021-06-11 23:59 | disposition short-term general hospital (02) ==
LOC: CVS 12:58
PROVIDERS: PCP Family Medicine; Referring Provider Physician Assistant Medical; Visit Provider Physician Assistant Medical
DX: I34.0 Nonrheumatic mitral (valve) insufficiency (principal); R01.1 Cardiac murmur, unspecified
CPT/HCPCS: 93306

== ENCOUNTER → 2024-01-30 | Outpatient (CLI) | payer MEDICARE, SELFPAY ==
--- NOTE | 2024-01-30 12:46 | ECHOD_ITS ---
Reason For Study: NON-RHEUMATIC MITRAL VALVE INSUFFICIENCY Procedure This was a 2D Doppler, Color Flow transthoracic echocardiogram. Exam performed in department. Left Ventricle Normal left ventricle. Left ventricular systolic function is normal. The left ventricular ejection fraction is 60 %. Stage 1 diastolic dysfunction. No regional wall motion abnormalities noted. Right Ventricle Normal RV size. Normal systolic function. Atria Normal left atrium. Normal right atrium. Mitral Valve Normal mitral valve. Tricuspid Valve Normal tricuspid valve. Aortic Valve Trisinus/trileaflet aortic valve. Mild (1+) aortic valve insufficiency. Pulmonic Valve Normal pulmonic valve. Great Vessels Normal aortic root. The pulmonary artery is normal size. Normal inferior vena cava. Pericardium/Pleural No pericardial effusion. MMode/2D Measurements & Calculations LVIDd: 4.9 cm IVSd: 0.98 cm Ao root diam: 3.2 cm LVIDs: 3.1 cm LVPWd: 0.90 cm RVDd: 3.0 cm FS: 36.7 % LAV(MOD-bp): 51.9 ml LVAd ap4: 24.9 cm2 LVAd ap2: 19.5 cm2 LAV(MOD-bp) Indexed: 28.8 ml/m2 LVLd ap4: 7.0 cm LVLd ap2: 6.5 cm LAV(MOD-sp2): 52.4 ml EDV(MOD-sp4): 73.7 ml EDV(MOD-sp2): 50.9 ml LAV(MOD-sp4): 52.5 ml EDV(sp4-el): 75.3 ml EDV(sp2-el): 49.4 ml LVAs ap4: 12.5 cm2 LVAs ap2: 11.1 cm2 LVLs ap4: 5.5 cm LVLs ap2: 5.3 cm ESV(MOD-sp4): 24.5 ml ESV(MOD-sp2): 20.2 ml ESV(sp4-el): 23.8 ml ESV(sp2-el): 19.7 ml EF(MOD-sp4): 66.8 % EF(MOD-sp2): 60.4 % EF(sp4-el): 68.4 % SV(MOD-sp4): 49.3 ml SV(MOD-sp2): 30.8 ml SV(sp4-el): 51.5 ml LA dimension(2D): 3.6 cm LA A4 area: 17.1 cm2 RA A4 area: 9.6 cm2 TAPSE: 1.8 cm Time Measurements MV dec time: 0.25 sec Doppler Measurements & Calculations MV E max kolby: 57.1 cm/sec Lat Peak E' Kolby: 7.4 cm/sec Med Peak E' Kolby: 5.2 cm/sec MV A max kolby: 72.0 cm/sec E/E' lat: 7.7 E/E' med: 11.0 MV E/A: 0.79 MV V2 max: 93.0 cm/sec MV P1/2t max kolby: 66.6 cm/sec Ao V2 max: 175.0 cm/sec MV max P.5 mmHg MV P1/2t: 65.6 msec Ao max P.2 mmHg MV V2 mean: 42.1 cm/sec MV dec slope: 297.0 cm/sec2 Ao V2 mean: 110.0 cm/sec MV mean P.88 mmHg Ao mean P.5 mmHg MV V2 VTI: 20.5 cm MVA(P1/2t): 3.4 cm2 Ao V2 VTI: 32.3 cm AV (velocity ratio): 0.65 AI max kolby: 255.3 cm/sec LV V1 max: 89.9 cm/sec PA V2 max: 63.7 cm/sec AI max P.1 mmHg LV V1 max P.2 mmHg PA V2 mean: 50.3 cm/sec AI dec slope: 142.6 cm/sec2 LV V1 mean P.9 mmHg AI P1/2t: 524.4 msec LV V1 mean: 64.1 cm/sec LV V1 VTI: 21.0 cm ECHO/Echo Complete Interpretation Summary Normal left ventricle. Left ventricular systolic function is normal. The left ventricular ejection fraction is 60 %. Stage 1 diastolic dysfunction. Ordering Physician: Delaney Burleson Referring Physician: Elyse Atkinson Performed By: Chris, Clare, RDCS, RVT
== END | disposition home or self-care (01) ==
PROVIDERS: PCP Internal Medicine; Referring Provider Physician Assistant Medical; Visit Provider Physician Assistant Medical
DX: I34.0 Nonrheumatic mitral (valve) insufficiency (principal)
CPT/HCPCS: 93306

== ENCOUNTER → 2024-07-30 | Outpatient (CLI) | payer MEDICARE, SELFPAY ==
[2024-07-30 16:48] LABS: Erythrocyte Sedimentation Rate 3 mm/hr (0-30)
== END | disposition home or self-care (01) ==
PROVIDERS: PCP Internal Medicine; Referring Provider Psychiatry & Neurology Neurology; Visit Provider Psychiatry & Neurology Neurology
DX: H53.8 Other visual disturbances (principal); G44.209 Tension-type headache, unspecified, not intractable
CPT/HCPCS: 36415; 85652